=== PATIENT | male | born 1965 | race Caucasian/White ===

== ENCOUNTER 2022-10-02 17:27 | Inpatient (IN) ==
[2022-10-02] MEDS ORDERED: SODIUM CHLORIDE 0.9% 1000ML 1,000 ML IV ONE ×2 (17:53→18:56)
--- NOTE | 2022-10-02 18:00 | Emergency Department Note ---
History of Present Illness General Chief complaint: Lethargic Stated complaint: FATIGUE, ABDOMINAL PAIN, DECREASED APPETITE Time Seen by Provider: 10/02/22 17:37 Source: patient and friends (Friend who is at the bedside) Mode of arrival: ambulatory Limitations: no limitations History of Present Illness This patient is a 57-year-old male who is not felt well for the last for 5 days. He said he lost his appetite. He does not want to eat. He has pain in the right upper abdomen. Is been taking aspirin to help with this he says he is be en taking 3 aspirin about every 3 hours. No Tylenol. He is not had any intentional overdose or thoughts of hurting himself no fever does not feel achy no cough or shortness of breath it does not hurt when he breathes. No fall or trauma no dysuria hematuria normal bowel movements without blood or melena. He feels generally tired no fall. No focal numbness weakness no difficulty speaking or swallowing no change in vision. Minimal headache. No sick contacts. No back pain Home Medications Medication Instructions Recorded Confirmed Type No Known Home Medications 11/12/19 10/02/22 History Allergies Allergy/AdvReac Type Severity Reaction Status Date / Time No Known Allergies Allergy Verified 11/12/19 09:42 Past Med/Surg History Surgical History No history of previous surgery Family History Father Diabetes Heart disease Skin cancer Social History Smoking Status: Never smoker Hx Alcohol Use: Yes Hx Substance Use: No Feels Safe at Home: Yes Immunizations: Past medical history does have diabetes which she controls with supplements no recent blood sugar checks. He says his blood pressures been up and down at times in the past as well. 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 Does not smoke. He does not use drugs or marijuana. He drinks about a handle of alcohol in 5 days. He has not had any alcohol for approximately 5 or 6 days now. He does not feel he is had any shakiness or withdrawal symptoms. Review of Systems A total of 10 systems reviewed and were otherwise negative Physical Exam Vital Signs Vital Signs - 24 hr 10/02/22 17:31 10/02/22 17:46 10/02/22 17:46 Temperature 37.1 C Temperature Source Oral Pulse Rate 128 H Pulse Rate [Apical] 106 H Pulse Rhythm [Apical] Regular Respiratory Rate 18 15 Respiratory Effort / Characteristics Non-Labored Spontaneous Respiratory Depth Normal Blood Pressure 124/87 Blood Pressure [Left Arm] 189/113 H Blood Pressure Mean 99 Blood Pressure Mean [Left Arm] 138 Blood Pressure Position Sitting Pulse Oximetry 98 99 99 Oxygen Delivery Method Room Air Room Air Room Air Sepsis Recent Fever Within 48 Hours No Sepsis New/Unexplained Change in Mental Status N/A Sepsis Action Taken by Nursing No Action Required 10/02/22 19:27 10/02/22 20:00 Temperature Temperature Source Pulse Rate 93 H Pulse Rate [Apical] Pulse Rhythm [Apical] Respiratory Rate 19 14 Respiratory Effort / Characteristics Respiratory Depth Blood Pressure 158/105 H 167/100 H Blood Pressure [Left Arm] Blood Pressure Mean 122 122 Blood Pressure Mean [Left Arm] Blood Pressure Position Pulse Oximetry 100 99 Oxygen Delivery Method Room Air Room Air Sepsis Recent Fever Within 48 Hours Sepsis New/Unexplained Change in Mental Status Sepsis Action Taken by Nursing General: Well developed well nourished not ill-appearing middle-age male who in no acute distress, breathing comfortably on room air. Normal speech HEENT: Normal cephalic atraumatic. Pupils are equal round and reactive to l ight. Extraocular movements are intact. Oropharynx is pink with moist mucous membranes. No swelling of the mouth lips or tongue. Neck: Supple with a midline trachea. No meningeal signs or stiffness, no JVD or bruits. No Stridor. Chest: Clear to auscultation bilaterally. No wheezes or rhonchi. No increased work of breathing. Heart: Regular rate and rhythm without murmurs or gallops. Abdomen: Soft, mildly tender in the right upper abdomen. No rash or external signs of trauma. nondistended without rebound guarding or rigidity. Extremities: No cyanosis clubbing or edema. No calf tenderness or assymetry Spine/Back. Non tender to palpation. No CVA tenderness Skin: Good turgor without rashes. Neurologic exam: Cranial nerves two through 12 are intact. Motor and sensation are intact and symmetrical throughout. No tremor Procedures ABG Interpretation ABG Interpretation 1: ABG Results: pH is 7.41, PCO2 22, PO2 112, bicarb 14, O2 sat 99.9% Interpretation: metabolic acidosis Additional Comments: The patient has normal oxygenation. He does have a metabolic acidosis with respiratory compensation Course Administered Medications Sodium Bicarbonate 150 meq/ (Dextrose) 1,150 mls @ 125 mls/hr IV .Q9H12M [facility] Stop: 10/03/22 05:26 Last Admin: 10/02/22 20:40 Dose: 125 mls/hr Documented By: DP Pantoprazole Sodium 40 mg/ (Syringe) 10 mls @ 5 mls/min IV BID [facility] Stop: 11/01/22 21:14 Last Admin: 10/02/22 22:20 Dose: 5 mls/min Documented By: RDD Insulin Aspart (Insulin Aspart Per Unit) 0 units SC Q6H [facility] Stop: 11/01/22 21:14 Last Admin: 10/02/22 21:45 Dose: Not Given Documented By: DP Co-signed By: QGV Morphine Sulfate (Morphine Sulfate 2 Mg/Ml Carp) 1 mg IV Q4H PRN PRN Reason: Pain (4,5,6 +) Stop: 10/16/22 20:30 Last Admin: 10/02/22 21:32 Dose: 1 mg Documented By: DP Discontinued Medications Sodium Chloride (Nss 1000ml) 1,000 mls @ 999 mls/hr IV .Q1H1M ONE Stop: 10/02/22 18:53 Last Infusion: 10/02/22 19:21 Dose: 0 mls/hr Documented By: Admin: 10/02/22 18:20 Dose: 999 mls/hr Documented By: RDD Sodium Chloride (Nss 1000ml) 1,000 mls @ 999 mls/hr IV .Q1H1M ONE Stop: 10/02/22 19:56 Last Infusion: 10/02/22 20:33 Dose: 0 mls/hr Documented By: Admin: 10/02/22 19:32 Dose: 999 mls/hr Documented By: DP Insulin Aspart (Insulin Aspart Per Unit) 0 units SC ACHS [facility] Stop: 11/01/22 20:59 Last Admin: 10/02/22 21:46 Dose: Not Given Documented By: DP Co-signed By: QGV Sodium Bicarbonate (Sodium Bicarb 8.4% Inj 50 Meq/50 Ml Syr) 50 meq IV ONE STA Stop: 10/02/22 20:32 Last Admin: 10/02/22 20:39 Dose: 50 meq Documented By: DP Tamsulosin HCl (Tamsulosin Hcl 0.4 Mg Cap) 0.4 mg PO ONE STA Stop: 10/02/22 20:43 Last Admin: 10/02/22 21:05 Dose: 0.4 mg Documented By: DP Thiamine HCl (Thiamine Hcl 100 Mg Tab) 100 mg PO ONE STA Stop: 10/02/22 20:45 Last Admin: 10/02/22 21:08 Dose: 100 mg Documented By: DP Critical Care Time Critical Care Time: Yes Total Critical Care Time: 45 I have personally spent greater than 45 minutes of critical care time in the direct management of this patient. This includes bedside care, interpretation of diagnostic studies, and testing, discussion with consultants, patient, and family members, and other required patient management activities. This 45 minutes is in excess of all separately billable procedures. Medical Decision Making Differential Diagnosis Gallbladder disease, liver disease, infection, toxicologic, diabetic related, thyroid disease, cardiac disease, pulmonary disease, electrolyte or metabolic abnormality, trauma Medical Records Attestation: I reviewed the patient's medical records. Home Medications Current Medication List: was personally reviewed by me Laboratory Data Attestation: I reviewed the patient's lab results. Result diagrams: 10/02/22 17:56 10/02/22 17:56 Lab Results 10/02/22 10/02/22 10/02/22 Range/Units 17:56 17:56 17:56 WBC 9.86 (4.8-10.8) K/ul RBC 5.01 (4.63-6.08) M/uL Hgb 17.8 (14.0-18.0) g/dl Hct 48.5 (40.1-51.0) % MCV 96.8 (80.0-100.0) fL MCH 35.5 H (25.0-34.0) pg MCHC 36.7 H (32.0-36.0) g/dL RDW Std Deviation 40.3 (36.4-46.3) fL RDW Coeff of Nasima 11.4 L (11.5-14.5) % Plt Count 227 (130-400) K/uL MPV 10.2 (9.4-12.4) fL Immature Gran % (Auto) 0.4 % Neut % (Auto) 76.2 % Lymph % (Auto) 9.9 % [place] % (Auto) 12.8 % Eos % (Auto) 0.3 % Baso % (Auto) 0.4 % Neut # (Auto) 7.51 H (1.4-6.5) K/uL Lymph # (Auto) 0.98 L (1.2-3.4) K/uL [place] # (Auto) 1.26 H (0.24-0.82) K/uL Eos # (Auto) 0.03 (0-0.50) K/uL Baso # (Auto) 0.04 (0-0.2) K/uL Immature Gran # (Auto) 0.04 H (0.00-0.02) K/uL PT 11.9 (9.0-12.0) Seconds INR 1.1 (0.9-1.1) APTT 25.2 (21.0-31.0) Seconds PTT Ratio 0.9 ABG pH (7.35-7.45) ABG pCO2 (35-46) mmHg ABG pO2 (80-95) mmHg ABG HCO3 (19-24) mmol/L ABG O2 Saturation (90-95) % ABG Base Excess (-9-1.8) mEq/L Irving Test (Pos) Oxygen Given Sodium 134 L (136-145) mmol/L Potassium 3.9 (3.5-5.1) mmol/L Chloride 97 L (98-107) mmol/L Carbon Dioxide 18 L (21-32) mmol/L Anion Gap 19 H (3-11) BUN 38 H (6-23) mg/dl Creatinine 1.50 H (0.6-1.4) mg/dl Est Cr Clr Drug Dosing 62.9 ml/min Est GFR ( Amer) 58.6 ml/min Est GFR (Non-Af Amer) 50.6 ml/min BUN/Creatinine Ratio 25.3 H (10-20) Glucose 305 H* (70-99(Fasting)) mg/dl Lactate (0.4-2.0) mmol/L Calcium 8.9 (8.5-10.1) mg/dl Magnesium 2.1 (1.7-2.4) mg/dl Total Bilirubin 1.3 H (0.2-1.0) mg/dl AST 15 (13-39) U/L ALT 23 (7-52) U/L Alkaline Phosphatase 48 (34-104) U/L Ammonia (18-72) umol/L Troponin I High Sens 9.2 (0-20) pg/ml Total Protein 7.5 (6.0-8.3) gm/dl Albumin 4.1 (3.4-5.0) gm/dl Globulin 3.4 (2.5-4.0) gm/dl Albumin/Globulin Ratio 1.2 (0.9-2) TSH (0.300-4.500) uIu/ml Salicylates (3.0-30) mg/dl Acetaminophen (10-30) ug/ml Ethyl Alcohol mg/dL (<10.0) mg/dl 10/02/22 10/02/22 10/02/22 Range/Units 17:56 17:56 17:56 WBC (4.8-10.8) K/ul RBC (4.63-6.08) M/uL Hgb (14.0-18.0) g/dl Hct (40.1-51.0) % MCV (80.0-100.0) fL MCH (25.0-34.0) pg MCHC (32.0-36.0) g/dL RDW Std Deviation (36.4-46.3) fL RDW Coeff of Nasima (11.5-14.5) % Plt Count (130-400) K/uL MPV (9.4-12.4) fL Immature Gran % (Auto) % Neut % (Auto) % Lymph % (Auto) % [place] % (Auto) % Eos % (Auto) % Baso % (Auto) % Neut # (Auto) (1.4-6.5) K/uL Lymph # (Auto) (1.2-3.4) K/uL [place] # (Auto) (0.24-0.82) K/uL Eos # (Auto) (0-0.50) K/uL Baso # (Auto) (0-0.2) K/uL Immature Gran # (Auto) (0.00-0.02) K/uL PT (9.0-12.0) Seconds INR (0.9-1.1) APTT (21.0-31.0) Seconds PTT Ratio ABG pH (7.35-7.45) ABG pCO2 (35-46) mmHg ABG pO2 (80-95) mmHg ABG HCO3 (19-24) mmol/L ABG O2 Saturation (90-95) % ABG Base Excess (-9-1.8) mEq/L Irving Test (Pos) Oxygen Given Sodium (136-145) mmol/L Potassium (3.5-5.1) mmol/L Chloride (98-107) mmol/L Carbon Dioxide (21-32) mmol/L Anion Gap (3-11) BUN (6-23) mg/dl Creatinine (0.6-1.4) mg/dl Est Cr Clr Drug Dosing ml/min Est GFR ( Amer) ml/min Est GFR (Non-Af Amer) ml/min BUN/Creatinine Ratio (10-20) Glucose (70-99(Fasting)) mg/dl Lactate (0.4-2.0) mmol/L Calcium (8.5-10.1) mg/dl Magnesium (1.7-2.4) mg/dl Total Bilirubin (0.2-1.0) mg/dl AST (13-39) U/L ALT (7-52) U/L Alkaline Phosphatase (34-104) U/L Ammonia (18-72) umol/L Troponin I High Sens (0-20) pg/ml Total Protein (6.0-8.3) gm/dl Albumin (3.4-5.0) gm/dl Globulin (2.5-4.0) gm/dl Albumin/Globulin Ratio (0.9-2) TSH 1.848 (0.300-4.500) uIu/ml Salicylates 34.6 H* (3.0-30) mg/dl Acetaminophen < 3 L (10-30) ug/ml Ethyl Alcohol mg/dL < 10.0 (<10.0) mg/dl 10/02/22 10/02/22 10/02/22 Range/Units 18:21 18:21 19:28 WBC (4.8-10.8) K/ul RBC (4.63-6.08) M/uL Hgb (14.0-18.0) g/dl Hct (40.1-51.0) % MCV (80.0-100.0) fL MCH (25.0-34.0) pg MCHC (32.0-36.0) g/dL RDW Std Deviation (36.4-46.3) fL RDW Coeff of Nasima (11.5-14.5) % Plt Count (130-400) K/uL MPV (9.4-12.4) fL Immature Gran % (Auto) % Neut % (Auto) % Lymph % (Auto) % [place] % (Auto) % Eos % (Auto) % Baso % (Auto) % Neut # (Auto) (1.4-6.5) K/uL Lymph # (Auto) (1.2-3.4) K/uL [place] # (Auto) (0.24-0.82) K/uL Eos # (Auto) (0-0.50) K/uL Baso # (Auto) (0-0.2) K/uL Immature Gran # (Auto) (0.00-0.02) K/uL PT (9.0-12.0) Seconds INR (0.9-1.1) APTT (21.0-31.0) Seconds PTT Ratio ABG pH 7.41 (7.35-7.45) ABG pCO2 22 L (35-46) mmHg ABG pO2 112 H (80-95) mmHg ABG HCO3 14 L (19-24) mmol/L ABG O2 Saturation 99.9 H (90-95) % ABG Base Excess -8.6 (-9-1.8) mEq/L Irving Test Pos (Pos) Oxygen Given Room Air Sodium (136-145) mmol/L Potassium (3.5-5.1) mmol/L Chloride (98-107) mmol/L Carbon Dioxide (21-32) mmol/L Anion Gap (3-11) BUN (6-23) mg/dl Creatinine (0.6-1.4) mg/dl Est Cr Clr Drug Dosing ml/min Est GFR ( Amer) ml/min Est GFR (Non-Af Amer) ml/min BUN/Creatinine Ratio (10-20) Glucose (70-99(Fasting)) mg/dl Lactate 2.5 H* (0.4-2.0) mmol/L Calcium (8.5-10.1) mg/dl Magnesium (1.7-2.4) mg/dl Total Bilirubin (0.2-1.0) mg/dl AST (13-39) U/L ALT (7-52) U/L Alkaline Phosphatase (34-104) U/L Ammonia 41.0 (18-72) umol/L Troponin I High Sens (0-20) pg/ml Total Protein (6.0-8.3) gm/dl Albumin (3.4-5.0) gm/dl Globulin (2.5-4.0) gm/dl Albumin/Globulin Ratio (0.9-2) TSH (0.300-4.500) uIu/ml Salicylates (3.0-30) mg/dl Acetaminophen (10-30) ug/ml Ethyl Alcohol mg/dL (<10.0) mg/dl Imaging Data Attestation: I personally reviewed and interpreted this imaging study as follows: My Impression: Chest x-ray-no acute infiltrate, failure, pneumothorax seen Radiologist's Impression: Chest X-Ray 10/02/22 17:52 XR chest 1V portable CLINICAL HISTORY: weakness TECHNIQUE: Single frontal radiograph of the chest was obtained. Comparison: None available at the time of this dictation. FINDINGS: No lines and tubes are seen. The cardiomediastinal silhouette is normal. The lungs are clear. No evidence of pleural effusion or pneumothorax. IMPRESSION: No acute abnormalities and in particular no evidence of pneumonia. ACT 112: Negative or not required by law. Electronically signed by: Almas Cotto M.D. 10/02/2022 6:16 PM Abdomen/Pelvis CT 10/02/22 18:50 CT abd pelvis wo con CLINICAL HISTORY: rt flank and abd pain TECHNIQUE: Helical axial images of the abdomen and pelvis were obtained. Automa singh dose lowering techniques and/or adjustment according to patient size were utilized for this exam. This exam was performed without intravenous contrast. CT DOSE: 441.67 mGy.cm COMPARISON: None available at the time of this dictation. FINDINGS: Lower chest: No acute abnormality. Liver: Hepatic steatosis is noted. Gallbladder and biliary tree: No calcified gallstones. Normal caliber wall. No intra- or extrahepatic biliary ductal dilation. Pancreas: Unremarkable, no focal lesions. Spleen: Unremarkable. Adrenals: Unremarkable. Kidneys and ureters: There is an obstructive stone in the right proximal ureter measuring approximately 4 mm in diameter. There is associated hydronephrosis/hydroureter. Bladder: Unremarkable. Reproductive organs: Unremarkable. Bowel: Unremarkable. Lymph nodes Retroperitoneal: Unremarkable. Pelvic: Unremarkable. Mesenteric: Unremarkable. Peritoneum: Normal. Vessels: Atherosclerotic calcifications are seen. There is a tiny infrarenal aortic aneurysm measuring 24 mm in diameter. Abdominal wall: Unremarkable. Bones: Degenerative changes in the visualized spine. IMPRESSION: There is an obstructive stone in the proximal right ureter with associated hydronephrosis/hydroureter. ACT 112: Negative or not required by law. Electronically signed by: Almas Cotto M.D. 10/02/2022 7:25 PM ECG Data Attestation: I personally reviewed and interpreted this ECG as follows: Indication: + abdominal pain Rate (beats per minute): 107 Rhythm: + sinus tachycardia ECG Intervals/blocks: + Normal QRS, + Normal QT and + Normal CT ECG [place]: + Normal ECG ST segments: + Nonspecific ST abnormalities ECG Findings: no PACs or no PVCs Comparison ECG Date: from (03/11/98) Change: the following changes noted (Nonspecific ST segments are now present) MDM Narrative This patient comes in as described above he was placed on a monitoring coordinator in room B8. He has multiple complaints over the last several days he has had decreased appetite and it seems like his pain is mostly in the right upper quadrant abdominal pain he has stable vital signs. One of my concerns is he has been taking extra aspirin and this could be related to aspirin toxicity among other things. His initial EKG does not suggest any definite ischemia. IV access was established and he was given 1 L IV normal saline bolus/ multiple blood testing was obtained as well as chest x-ray and EKG and COVID testing he was reassessed frequently. His aspirin level came back elevated and his CO2 was also low at 18. I did add an ABG. His blood sugar is also elevated at over 300. His lactic acid is mildly elevated 2.5 he continue receive IV hydration added a second liter. His ammonia was normal and his LFTs are normal. His renal function is mildly elevated as well. That could be prerenal. I am concerned there is an aspirin toxicity component. There may be an underlying diabetes component and I ordered a noncontrast CT to evaluate for any acute intra-abdominal process. He was found to have a kidney stone on the right. I suspect that he has been using aspirin because he has had pain from the kidney stone and has been using potentially toxic doses of aspirin he also has diabetes which he is not being treated for now which attributes to his electrolyte abnormality. I did discuss the case with Patria at the [facility] and she recommends treating him with a bicarb bolus 0.5 to 1 mg/kg IV and then a bicarb drip to keep the pH between 7.5 and 7.55. She said that this needs to be run until the salicylate level is less than 30. She recommends checking the salicylate level, VBG, and potassium every 2 hours and once the salicylate level goes less than 30 they can turn off the drip and check it 1 more time in 2 hours to make sure there is no rebound. I called and talked to Brenda, the pharmacist, she is ordered the bolus and is also ordering a drip IV. I have discussed the case with Dr. Victoria and she is presently at the bedside and will be admitting the patient for further treatment and evaluation Continuous cardiac monitoring: Orders placed in EMR for continuous cardiac monitoring. Upon my interpretation, the patient noted be in sinus tachycardia with a rate of 100. Impression & Plan Overdose of salicylate, Weakness, Metabolic acidosis, Hyperglycemia, Elevated lactic acid level, Lab test negative for COVID-19 virus, Abdominal pain Discharge Plan Visit Data Chief Complaint: Lethargic Stated Complaint: FATIGUE, ABDOMINAL PAIN, DECREASED APPETITE ED Provider: Darrian Staley Discharge Problem: Overdose of salicylate, Weakness, Metabolic acidosis, Hyperglycemia, Elevated lactic acid level, Lab test negative for COVID-19 virus, Abdominal pain Patient Disposition: Admitted As Inpatient Discharge Instructions Interventions: ED Discharge Assessment Last Done: 10/02/22 22:23 : Overdose of salicylate Qualifiers: Encounter type: initial encounter Injury intent: accidental or unintentional Qualified Code(s): T39.091A - Poisoning by salicylates, accidental (unintentional), initial encounter Abdominal pain Qualifiers: Abdominal location: right upper quadrant Qualified Code(s): R10.11 - Right upper quadrant pain
[2022-10-02 18:07] LABS: Basophils # (auto) 0.04 K/uL (0-0.2); Basophils % (auto) 0.4 %; Eosinophils # (auto) 0.03 K/uL (0-0.50); Eosinophils % (auto) 0.3 %; Hematocrit (blood only) 48.5 % (40.1-51.0); Hemoglobin 17.8 g/dl (14.0-18.0); Immature Granulocytes # (auto) 0.04 K/uL (0.00-0.02); Immature Granulocytes % (auto) 0.4 %; Lymphocytes # (auto) 0.98 K/uL (1.2-3.4); Lymphocytes % (auto) 9.9 %; Mean Corpuscular Hemoglobin 35.5 pg (25.0-34.0); Mean Corpuscular Hgb Conc 36.7 g/dL (32.0-36.0); Mean Corpuscular Volume 96.8 fL (80.0-100.0); Mean Platelet Volume 10.2 fL (9.4-12.4); Monocytes # (auto) 1.26 K/uL (0.24-0.82); Monocytes % (auto) 12.8 %; Neutrophils # (auto) 7.51 K/uL (1.4-6.5); Neutrophils % (auto) 76.2 %; Platelet Count 227 K/uL (130-400); RDW Coefficient of Variation 11.4 % (11.5-14.5); RDW Standard Deviation 40.3 fL (36.4-46.3); Red Blood Count 5.01 M/uL (4.63-6.08); White Blood Count 9.86 K/ul (4.8-10.8)
--- NOTE | 2022-10-02 18:17 | XRay Report ---
XR chest 1V portable CLINICAL HISTORY: weakness TECHNIQUE: Single frontal radiograph of the chest was obtained. Comparison: None available at the time of this dictation. FINDINGS: No lines and tubes are seen. The cardiomediastinal silhouette is normal. The lungs are clear. No evid ence of pleural effusion or pneumothorax. IMPRESSION: No acute abnormalities and in particular no evidence of pneumonia. ACT 112: Negative or not required by law. Electronically signed by: Almas Cotto M.D. 10/02/2022 6:16 PM
[2022-10-02 18:19] LABS: INR 1.1 (0.9-1.1); Partial Thromboplastin Ratio 0.9; Partial Thromboplastin Time 25.2 Seconds (21.0-31.0); Prothrombin Time 11.9 Seconds (9.0-12.0)
[2022-10-02 18:50] LABS: Acetaminophen < 3 ug/ml (10-30); Salicylate 34.6 mg/dl (3.0-30)
[2022-10-02 18:51] LABS: Albumin Globulin Ratio 1.2 (0.9-2); Albumin Level 4.1 gm/dl (3.4-5.0); BUN Creatinine Ratio 25.3 (10-20); Bilirubin,Total 1.3 mg/dl (0.2-1.0); Calcium 8.9 mg/dl (8.5-10.1); Creatinine Clr Calc Pharmacy 62.9 ml/min; Est GFR (African American) 58.6 ml/min; Est GFR (Non-African American) 50.6 ml/min; Globulin 3.4 gm/dl (2.5-4.0); Magnesium 2.1 mg/dl (1.7-2.4); Potassium 3.9 mmol/L (3.5-5.1); Total Protein 7.5 gm/dl (6.0-8.3); Troponin I High Sensitivity 9.2 pg/ml (0-20)
--- NOTE | 2022-10-02 19:27 | CT Scan Report ---
CT abd pelvis wo con CLINICAL HISTORY: rt flank and abd pain TECHNIQUE: Helical axial images of the abdomen and pelvis were obtained. Automated dose lowering tech niques and/or adjustment according to patient size were utilized for this exam. This exam was perfor med without intravenous contrast. CT DOSE: 441.67 mGy.cm COMPARISON: None available at the time of this dictation. FINDINGS: Lower chest: No acute abnormality. Liver: Hepatic steatosis is noted. Gallbladder and biliary tree: No calcified gallstones. Normal caliber wall. No intra- or extrahepatic biliary ductal dilation. Pancreas: Unremarkable, no focal lesions. Spleen: Unremarkable. Adrenals: Unremarkable. Kidneys and ureters: There is an obstructive stone in the right proximal ureter measuring approximate ly 4 mm in diameter. There is associated hydronephrosis/hydroureter. Bladder: Unremarkable. Reproductive organs: Unremarkable. Bowel: Unremarkable. Lymph nodes Retroperitoneal: Unremarkable. Pelvic: Unremarkable. Mesenteric: Unremarkable. Peritoneum: Normal. Vessels: Atherosclerotic calcifications are seen. There is a tiny infrarenal aortic aneurysm measurin g 24 mm in diameter. Abdominal wall: Unremarkable. Bones: Degenerative changes in the visualized spine. IMPRESSION: There is an obstructive stone in the proximal right ureter with associated hydronephrosis/hydroureter . ACT 112: Negative or not required by law. Electronically signed by: Almas Cotto M.D. 10/02/2022 7:25 PM
[2022-10-02 19:36] LABS: Base Excess ABG -8.6 mEq/L (-9-1.8); HCO3 ABG 14 mmol/L (19-24); Oxygen Saturation ABG 99.9 % (90-95); PCO2 ABG 22 mmHg (35-46); PO2 ABG 112 mmHg (80-95); pH ABG 7.41 (7.35-7.45)
[2022-10-02 19:41] LABS: Allen Test Pos (Pos)
--- NOTE | 2022-10-02 19:58 | History & Physical Report ---
Date of Service October 02, 2022 Assessment & Plan (1) Overdose of salicylate: Plan: -Admit to the PCU -Patient is currently afebrile, hemodynamically stable, and stable on RA -Overdose was unintentional, patient was taking high doses of aspirin due to pain from right, 4mm kidney stone noted of CT of the abd/pelvis today -Patient's initial VBG is showing a pCO2 of 22, with pO2 of 12 and bicarb of 14. He also has an elevated AG with bicarb of 18. Patient is presenting with lab findings consistent with salicylate poisoning as it begins with a respiratory alkalosis and transitions into a high AG metabolic acidosis -Will continue sodium bicarb bolus and drip to keep VBG pH between 7.50-7.55 -Monitor q2h VBG, salicylate level, and BMP until the patient's salicylate level falls below 30, then recheck all 3 labs once more in 2 hours to ensure he is not having a rebound effect -Monitor on tele and pulse oximetry -No concerning ECG changes -Patient's initial lactate was elevated at 2.5, repeat is ordered after receiving 2L NSS bolus -Will start the patient on thiamine to avoid any possible Wernicke's encephalopathy since he has not been eating over the past week (2) Nephrolithiasis: Plan: -Patient found to have 4 mm right nephrolithiasis with hydronephrosis/hydroureter -Patient should be able to pass stone without stenting, no signs of systemic infection at this time, will obtain a UA -Patient is urinating well, unsure of baseline cr but continue to trend -Will start the patient on Flomax tonight, tylenol and morphine for pain. Would not use NSAIDs at this time with his current salicylate levels -If any issues would consult Urology (3) Hyperglycemia: Plan: -Initial BSG noted to be 305 -Patient uses diet and exercise to try and control his BSG, is hesitant to try insulin at the time of the admission and asked if we could continue to monitor for now -Patient is S/P 2L NSS bolus -Will monitor BSG q6h for now with correction factor 45 and carb ratio 15 q6h. Communication placed to ask patient if he would want to use insulin before giving -AM A1C ordered (4) Type 2 diabetes mellitus: Plan: -See hyperglycemia (5) Metabolic acidosis: Plan: -See salicylate poisoning Plan The patient was seen with and discussed with Dr. Victoria at the time of the admission History of Present Illness Chief Complaint: Lethargic Primary Care Provider: ROSIE PCP Mike is a 57 year old male with a PMH significant for DM II who presented to the [facility] ED on 10/02/22 with a chief complaint of lethargy. In the ED the patient was found to be afebrile, hypertensive with systolic BP's in the 150's- 180's, and stable on RA. Labs were remarkable WBC WNL, stable Hgb and platelets, VBG showing a pH of 7.41, pCO2 22, pO2 of 112, Bicarb of 14, Cr of 1.5, stable corrected sodium, AG of 19 with vicarb of 18, blood glucose of 305, total bili 1.3, lactate of 2.5, Salicylate level of 34.6. Chest xray shows "No acute abnormalities and in particular no evidence of pneumonia". CT of the abdomen/pelvis WO contrast shows "There is an obstructive stone in the proximal right ureter with associated hydronephrosis/hydroureter.". Prior to admission the patient was given 2L NSS in the ED. At the time of the exam the patient was lying comfortably in bed in no acute distress with his friends sitting bedside, history was obtained from all 3. The patient states that he started to experience right flank/RLQ pain approximately one week ago. The pain is fairly constant, is a 5/10 at it's worst, and does not change with movement or urination. The patient is not on any prescribed medications as he tries to stick to holistic medical treatments. Due to his pain he had poor oral intake and has not been eating or drinking consistently over the past week. Approximately 3 days ago he started taking aspirin for his pain. He was taking 3, 325 mg Tablets of aspirin every 3 hours over the past 72 hours. His last dose of aspirin was approximately 4 pm today. He friends convinced him to come to the hospital today as they stated that he was very weak and was becoming confused and lethargic. His friends state that since arriving to the hospital and receiving IV fluids they already notice a big improvement in his cognition. Of note, his friends feel as though his hearing was worse over the past 48 hours, the patient agrees with them but denies tinnitus at this time. The patient denies recent fevers, chills, headache, changes in vision, hearing, taste, and smell, chest pain, SOB, vomiting, dysuria, hematuria, diarrhea, melena, lower extremity swelling, and recent falls/trauma. I discussed code status with him, he wishes to be a full code. The ED staff spoke with poison control who recommended starting the patient on an initial bolus of sodium bicarb and then a bicarb drip. They recommended checking a VBG, BMP, and salicylate level q2h until his salicylate level falls below 30. At that time the bicarb drip can be turned off and a final VBG, BMP, and salicylate level should be drawn 2 hours after to ensure he does not have a rebound effect after stopping the drip. The poison control center recommended keeping his VBG pH between 7.50-7.55 while on the bicarb drip and until his salicylate level falls below 30. The ED staff coordinated with our ED pharmacist to order the initial bolus and drip rate for the sodium bicarb. Please refer to Dr. Victoria's attestation for any changes to the treatment plan Allergies Allergy/AdvReac Type Severity Reaction Status Date / Time No Known Allergies Allergy Verified 11/12/19 09:42 Home Medications Medication Instructions Recorded Confirmed Type No Known Home Medications 11/12/19 10/02/22 History Past Med/Surg History Surgical History No history of previous surgery Family History Father Diabetes Heart disease Skin cancer Social History Smoking Status: Never smoker Hx Alcohol Use: Yes Hx Substance Use: No Preferred Language: Malay [employer] Required: No Beliefs That Will Affect Care: None Current Living Situation: Alone Feels Safe at Home: Yes Review of Systems Review of Systems: Denies current fever, chills, headache, changes in vision, hearing, taste, and smell, chest pain, SOB, cough, abdominal nausea, vomiting, diarrhea, hematemesis, melena, dysuria, hematuria, and recent falls. All systems have been reviewed and are otherwise negative. Physical Exam Physical Exam: Physical Exam: General: In no acute distress, stated age, well-nourished, good hygiene, non- toxic appearing HEENT: Normocephalic, atraumatic, no scleral icterus, pupils around round, symmetrical, and reactive to light, Dry mucus membranes, trachea midline, no thyromegaly Chest/Pulm: No respiratory distress, symmetrical chest expansion, clear breath sounds throughout Cardiac: RRR, no murmurs noted Abdomen: Negative for ascites and bruising, normoactive bowel sounds, soft, tender to palpation in the RUQ and RLQ, negative CVA tenderness Musculoskeletal: Symmetrical and without signs of acute trauma, upper and lower extremities with full ROM, no atrophy, spasticity, or flaccidity Extremities: Radial, dorsalis pedis, and posterior tibial pulses are intact and symmetrical, no edema noted in the BL LE's Skin: Warm, dry, no rashes , lesions, or scars noted Neuro: Alert and oriented to person, place, month, year, and president, no focal defects, CN II-XII tested and intact, finger to nose test negative, no tremors noted Psych: No acute distress, calm and cooperative during the exam Results & Data Results & Data ([facility]) Vital Signs (Past 12 Hours) Vital Signs Temp Pulse Pulse Resp BP BP Pulse Ox 10/02/22 19:27 93 H 19 158/105 H 100 10/02/22 17:46 106 H 15 189/113 H 99 10/02/22 17:46 99 10/02/22 17:31 37.1 C 128 H 18 124/87 98 O2 Del Method 10/02/22 19:27 Room Air 10/02/22 17:46 Room Air 10/02/22 17:46 Room Air 10/02/22 17:31 Room Air Laboratory Results Abnormal lab results 10/02/22 10/02/22 10/02/22 Range/Units 17:56 17:56 17:56 MCH 35.5 H (25.0-34.0) pg MCHC 36.7 H (32.0-36.0) g/dL RDW Coeff of Nasima 11.4 L (11.5-14.5) % Neut # (Auto) 7.51 H (1.4-6.5) K/uL Lymph # (Auto) 0.98 L (1.2-3.4) K/uL [place] # (Auto) 1.26 H (0.24-0.82) K/uL Immature Gran # (Auto) 0.04 H (0.00-0.02) K/uL ABG pCO2 (35-46) mmHg ABG pO2 (80-95) mmHg ABG HCO3 (19-24) mmol/L ABG O2 Saturation (90-95) % Sodium 134 L (136-145) mmol/L Chloride 97 L (98-107) mmol/L Carbon Dioxide 18 L (21-32) mmol/L Anion Gap 19 H (3-11) BUN 38 H (6-23) mg/dl Creatinine 1.50 H (0.6-1.4) mg/dl BUN/Creatinine Ratio 25.3 H (10-20) Glucose 305 H* (70-99(Fasting)) mg/dl Lactate (0.4-2.0) mmol/L Total Bilirubin 1.3 H (0.2-1.0) mg/dl Salicylates 34.6 H* (3.0-30) mg/dl Acetaminophen < 3 L (10-30) ug/ml 10/02/22 10/02/22 Range/Units 18:21 19:28 MCH (25.0-34.0) pg MCHC (32.0-36.0) g/dL RDW Coeff of Nasima (11.5-14.5) % Neut # (Auto) (1.4-6.5) K/uL Lymph # (Auto) (1.2-3.4) K/uL [place] # (Auto) (0.24-0.82) K/uL Immature Gran # (Auto) (0.00-0.02) K/uL ABG pCO2 22 L (35-46) mmHg ABG pO2 112 H (80-95) mmHg ABG HCO3 14 L (19-24) mmol/L ABG O2 Saturation 99.9 H (90-95) % Sodium (136-145) mmol/L Chloride (98-107) mmol/L Carbon Dioxide (21-32) mmol/L Anion Gap (3-11) BUN (6-23) mg/dl Creatinine (0.6-1.4) mg/dl BUN/Creatinine Ratio (10-20) Glucose (70-99(Fasting)) mg/dl Lactate 2.5 H* (0.4-2.0) mmol/L Total Bilirubin (0.2-1.0) mg/dl Salicylates (3.0-30) mg/dl Acetaminophen (10-30) ug/ml Diagnostic Findings Chest X-Ray 10/02/22 17:52 XR chest 1V portable CLINICAL HISTORY: weakness TECHNIQUE: Single frontal radiograph of the chest was obtained. Comparison: None available at the time of this dictation. FINDINGS: No lines and tubes are seen. The cardiomediastinal silhouette is normal. The lungs are clear. No evidence of pleural effusion or pneumothorax. IMPRESSION: No acute abnormalities and in particular no evidence of pneumonia. ACT 112: Negative or not required by law. Electronically signed by: Almas Cotto M.D. 10/02/2022 6:16 PM Abdomen/Pelvis CT 10/02/22 18:50 CT abd pelvis wo con CLINICAL HISTORY: rt flank and abd pain TECHNIQUE: Helical axial images of the abdomen and pelvis were obtained. Automated dose lowering techniques and/or adjustment according to patient size were utilized for this exam. This exam was performed without intravenous contrast. CT DOSE: 441.67 mGy.cm COMPARISON: None available at the time of this dictation. FINDINGS: Lower chest: No acute abnormality. Liver: Hepatic steatosis is noted. Gallbladder and biliary tree: No calcified gallstones. Normal caliber wall. No intra- or extrahepatic biliary ductal dilation. Pancreas: Unremarkable, no focal lesions. Spleen: Unremarkable. Adrenals: Unremarkable. Kidneys and ureters: There is an obstructive stone in the right proximal ureter measuring approximately 4 mm in diameter. There is associated hydronephrosis/hydroureter. Bladder: Unremarkable. Reproductive organs: Unremarkable. Bowel: Unremarkable. Lymph nodes Retroperitoneal: Unremarkable. Pelvic: Unremarkable. Mesenteric: Unremarkable. Peritoneum: Normal. Vessels: Atherosclerotic calcifications are seen. There is a tiny infrarenal aortic aneurysm measuring 24 mm in diameter. Abdominal wall: Unremarkable. Bones: Degenerative changes in the visualized spine. IMPRESSION: There is an obstructive stone in the proximal right ureter with associated hydronephrosis/hydroureter. ACT 112: Negative or not required by law. Electronically signed by: Almas Cotto M.D. 10/02/2022 7:25 PM ECG Additional Comments: Sinus tachycardia Possible Left atrial enlargement Borderline ECG When compared with ECG of 11-MAR-1998 15:40, Vent. rate has increased BY [address] no longer elevated in Lateral leads Code Status & VTE Plan Code Status Full code VTE Prophylaxis Plan VTE Prophylaxis will be ordered: Yes Supervising Physician Co-Signing Physician Notes Patient seen and examined, chart reviewed, case discussed with LEANNA Parry and I agree with the assessment and plan as above. In brief, patient is a 57yo male with history of DM presenting with unintentional ASA toxicity - he had been taking 325mg x 3 tabs every 3 hours for the last several days. He has some confusion as well as acid/base disturbance as above. Additionally, he has a right renal stone and hyperglycemia On exam he is afebrile, tachycardic otherwise HD stable MMM, Neck supple +S1/S2, regular, no m/r/g Lungs CTA Abd soft, NT/ND Ext - warm, well perfused Labs and images reviewed Assessment/plan -NaHCO3 bolus and drip - will trend ASA/VBG and BMP q 2 hours until ASA level is <30 -Flomax and IVF, monitor for stone passage -Remainder as above PG Care Time/CCT Total # of Minutes Spent Total Time Spent with Patient: Total time spent is greater than 50% in coordination of care (as documented) at patient's floor/unit and/or counseling patient: [place] [address] Initial Inpt Care Lvl 3 Patient Type Established Medical Decision Making High Complexity Diagnoses Overdose of salicylate T39.091A Encounter type: initial encounter Injury intent: accidental or unintentional Nephrolithiasis N20.0 Hyperglycemia R73.9 Type 2 diabetes mellitus E11.9 Metabolic acidosis E87.20 (1) Overdose of salicylate Encounter type: initial encounter Injury intent: accidental or unintentional Qualified Code(s): T39.091A - Poisoning by salicylates, accidental (unintentiona l), initial encounter
[2022-10-02] MEDS ORDERED: SODIUM BICARBONATE 8.4% INJ 50 MEQ/50 ML VIAL IV STA (20:06)
[2022-10-02] MEDS ORDERED: SODIUM BICARBONATE 8.4% 150 MEQ in DEXTROSE 5% 1,000 ML IV SCH (20:15)
[2022-10-02] MEDS ORDERED: GLUCOSE 40% GEL 15 GM TUBE PO PRN (20:25)
[2022-10-02] MEDS ORDERED: DEXTROSE 50% 50 ML SYRINGE IV PRN (20:25)
[2022-10-02] MEDS ORDERED: GLUCOSE 10 TAB/TUBE PO PRN (20:25)
[2022-10-02] MEDS ORDERED: GLUCAGON FOR INJ 1 MG VIAL SQ PRN (20:25)
[2022-10-02] MEDS ORDERED: CARBOHYDRATES FOR HYPOGLYCEMIA PO PRN (20:25)
[2022-10-02] MEDS ORDERED: ACETAMINOPHEN 325 MG TAB PO PRN (20:28)
[2022-10-02] MEDS ORDERED: SODIUM BICARB 8.4% INJ 50 MEQ/50 ML SYR IV STA (20:31)
[2022-10-02] MEDS ORDERED: TAMSULOSIN HCL 0.4 MG CAP PO STA (20:42)
[2022-10-02] MEDS ORDERED: THIAMINE HCL 100 MG TAB PO STA (20:44)
[2022-10-02] MEDS ORDERED: THIAMINE HCL 100 MG TAB PO SCH (20:45)
[2022-10-02] MEDS ORDERED: INSULIN ASPART PER UNIT SC SCH (21:00)
[2022-10-02] MEDS: MoRPHine SULFATE 2 MG/ML CARP IV PRN (21:32)
[2022-10-02] MEDS: INSULIN ASPART PER UNIT SC SCH (21:45)
[2022-10-02 22:06] LABS: Amphetamines+Metham, Urine Neg (Neg); Barbiturates, Urine Neg (Neg); Benzodiazepine, Urine Neg (Neg); Cocaine, Urine Neg (Neg); MDMA (Ecstacy), Urine Neg (Neg); Methadone, Urine Neg (Neg); Opiate, Urine Neg (Neg); Phencyclidine, Urine Neg (Neg)
[2022-10-02 22:12] LABS: Appearance Urine Clear (Clear); Bilirubin Urine Negative (Negative); Blood Urine Negative (Negative); Color Urine Yellow; Glucose Urine UA 3+ (Negative); Ketones Urine 4+ (Negative); Leukocyte Esterase Urine Negative (Negative); Nitrite Urine Negative (Negative); Protein Urine Negative (Negative); Specific Gravity Urine 1.028 (1.000-1.030); Urobilinogen Urine Negative (Negative)
[2022-10-02] MEDS: PANTOprazole 40 MG in SYRINGE 0 ML IV SCH (22:20)
[2022-10-02 22:35] LABS: Base Excess VBG -2.9 mEq/L; HCO3 VBG 22 mmol/L; Oxygen Saturation VBG < 60.0 %; PCO2 VBG 38 mmHg (38-50); PO2 VBG 24 mmHg; pH VBG 7.37 (7.36-7.41)
[2022-10-03 01:02] LABS: Base Excess VBG -2.3 mEq/L; HCO3 VBG 21 mmol/L; Oxygen Saturation VBG < 60.0 %; PCO2 VBG 33 mmHg (38-50); PO2 VBG 34 mmHg; pH VBG 7.42 (7.36-7.41)
[2022-10-03 01:37] LABS: BUN Creatinine Ratio 25.2 (10-20); Calcium 7.8 mg/dl (8.5-10.1); Creatinine Clr Calc Pharmacy 69.9 ml/min; Est GFR (African American) 66.6 ml/min; Est GFR (Non-African American) 57.5 ml/min; Potassium 3.8 mmol/L (3.5-5.1)
[2022-10-03 02:44] LABS: Base Excess VBG -3.3 mEq/L; HCO3 VBG 20 mmol/L; Oxygen Saturation VBG 81.4 %; PCO2 VBG 30 mmHg (38-50); PO2 VBG 47 mmHg; pH VBG 7.43 (7.36-7.41)
[2022-10-03] MEDS: MoRPHine SULFATE 2 MG/ML CARP IV PRN ×4 (03:13→21:20)
[2022-10-03] MEDS: INSULIN ASPART PER UNIT SC SCH ×4 (03:25→20:44)
[2022-10-03 03:26] LABS: BUN Creatinine Ratio 26.4 (10-20); Calcium 8.3 mg/dl (8.5-10.1); Creatinine Clr Calc Pharmacy 75.5 ml/min; Est GFR (African American) 73.1 ml/min; Est GFR (Non-African American) 63.1 ml/min; Potassium 3.6 mmol/L (3.5-5.1)
[2022-10-03 04:59] LABS: Base Excess VBG -2.7 mEq/L; HCO3 VBG 20 mmol/L; Oxygen Saturation VBG 83.8 %; PCO2 VBG 30 mmHg (38-50); PO2 VBG 49 mmHg; pH VBG 7.44 (7.36-7.41)
[2022-10-03 05:02] LABS: Hematocrit (blood only) 42.2 % (40.1-51.0); Hemoglobin 15.6 g/dl (14.0-18.0); Mean Corpuscular Hemoglobin 35.5 pg (25.0-34.0); Mean Corpuscular Volume 96.1 fL (80.0-100.0); Mean Platelet Volume 10.5 fL (9.4-12.4); Platelet Count 198 K/uL (130-400); RDW Coefficient of Variation 11.1 % (11.5-14.5); RDW Standard Deviation 39.4 fL (36.4-46.3); Red Blood Count 4.39 M/uL (4.63-6.08); White Blood Count 8.23 K/ul (4.8-10.8)
[2022-10-03] MEDS ORDERED: HYDROmorphone INJ 0.5 MG/0.5 ML SYR IV STA ×2 (05:16→23:30)
[2022-10-03 05:38] LABS: BUN Creatinine Ratio 27.2 (10-20); Calcium 8.1 mg/dl (8.5-10.1); Creatinine Clr Calc Pharmacy 82.8 ml/min; Est GFR (African American) 81.7 ml/min; Est GFR (Non-African American) 70.5 ml/min; Potassium 3.6 mmol/L (3.5-5.1)
--- NOTE | 2022-10-03 06:23 | Electrocardiogram Report ---
Test Reason : Blood Pressure : / mmHG Vent. Rate : 107 BPM Atrial Rate : 107 BPM P-R Int : 140 ms QRS Dur : 074 ms QT Int : 324 ms P-R-T Axes : 050 016 057 degrees QTc Int : 432 ms Sinus tachycardia Possible Left atrial enlargement Borderline ECG When compared with ECG of 11-MAR-1998 15:40, Vent. rate has increased BY [address] no longer elevated in Lateral leads Confirmed by Isaiah Hobbs ([id number]) on 10/03/2022 6:23:05 AM Referred By: REFERRED SELF Confirmed By:Isaiah Hobbs
[2022-10-03 07:07] LABS: Base Excess VBG -4.9 mEq/L; HCO3 VBG 18 mmol/L; Oxygen Saturation VBG 99.2 %; PCO2 VBG 27 mmHg (38-50); PO2 VBG 94 mmHg; pH VBG 7.43 (7.36-7.41)
[2022-10-03 07:10] LABS: Estimated Average Glucose 237 mg/dl; Hemoglobin A1C 9.9 % (4.5-5.6)
[2022-10-03 07:29] LABS: Calcium 8.2 mg/dl (8.5-10.1); Est GFR (African American) 78.4 ml/min; Est GFR (Non-African American) 67.6 ml/min; Potassium 3.8 mmol/L (3.5-5.1)
--- NOTE | 2022-10-03 07:37 | Hospitalist Progress Note ---
Date of Service October 03, 2022 Assessment & Plan (1) Overdose of salicylate: Plan: 57yo male presents after an unintentional dose of aspirin, then found with an obstructing right nephrolithiasis with hydronephrosis. Obstructing right nephrolithiasis with hydronephrosis Imaging revealed a 4mm right nephrolithiasis withhydronephrosis/hydroureter Patient should be able to pass stone without stenting, no signs of systemic infection at this time, will obtain a UA Patient is urinating well, unsure of baseline creatinine but continue to trend Will start the patient on Flomax tonight, tylenol and morphine for pain.Would not use NSAIDs at this time with his current salicylate levels NSS @ 100mL/hr Consider consulting urology if issues arise Unintentional salicylate overdose Patient afebrile, hemodynamically stable, and stable on RA Overdose was unintentional, patient was taking high doses of aspirin due to pain from right, 4mm kidney stone noted on CT a/p on admission Patient's initial VBG is showing a pCO2 of 22, with pO2 of 12 and bicarb of 14; labs consistent with salicylate poisoning as it begins with a respiratory alkalosis and transitions into a high AG metabolic acidosis Patient is s/p sodium bicarb bolus and drip; was discontinued once salicylate level fell below 30, as per poison control recommendations Monitor q2h VBG, salicylate level, and BMP until the patient's salicylate level falls below 30, then recheck all 3 labs once more in 2 hours to ensure he is not having a rebound effect Salicylate level fell below 30 in AM on 10/03; two-hour recheck fell further to 22; can discontinue q2h labs Monitor on tele and pulse oximetry No concerning ECG changes Patient's initial lactate was elevated at 2.5, repeat is ordered after receiving 2L NSS bolus Will start the patient on thiamine to avoid any possible Wernicke's encephalopathy since he has not been eating over the past week DM2, hyperglycemia HbA1c 9.9% (10/03/2022), no prior value on record Patient is not on any home meds for DM2, tried controlling with diet/exercise, however given very high HbA1c, will discuss starting DM2 meds Continue BSG checks, sliding-scale insulin, hypoglycemic protocol FEN: DM2 diet Code status: full code DVT ppx: SCDs Dispo: PCU (2) Nephrolithiasis: (3) Type 2 diabetes mellitus: Admission and Anticipated Discharge Date Admission Date: October 02, 2022 Supervising Physician Co-Signing Physician Notes I personally examined the patient and verified all gonzalez points of history and exam, discussed case, and agree with decision making with Dr Mujica. Still has right flank pain, does not think it is really migrated much. Still feels like pain is fairly bad. Extensive discussions on diabetes, as well as alcohol abusehis notes that he drinks quite a bit of bourbon a day. He notes that in terms of his lifestyle change he would like to try to quit that too. Vitals noted, in general he is awake and alert pleasant no distress. HEENT normocephalic atraumatic mucous membranes moist. Breathing unlabored no accessory muscle use good effort. Skin shows no rashes no pallor or icterus. Neuro without focal deficits. Ureterolithiasiscontinue pain control and expectant management. If it does not pass the next day or so, then consider urology evaluation. Salicylate toxicityaccidental overdose trying to manage kidney stone pain at home. This appears to essentially have resolvedmetabolic acidosis has improved nicely. Uncontrolled type 2 [id number] approximately 10%extensive discussion on why to care, as well as the critical role of lifestyle in control of type 2 diabetes. He is extremely keen on lifestyle change as his main means of management. We discussed this really being more diet and exercise changes than anything to do with supplements. Discussed frankly that if he wanted to take pills I would prefer he takes pharmaceuticals that have a more proven benefit, and if he would prefer to do things "holistically" that it would be better to truly do the lifestyle change that has a meaningful impact. He is extremely motivated to do so. Discussed postprandial glucose monitoring, discussed Mediterranean diet, discussed goal of 30 minutes of daily exercise. Made him aware that while lifestyle change can be definitive for type 2 diabetes, right now people are encouraging him to take medications because this often takes time, and in the meantime he is likely creating microvascular ischemia, even as we speak. Leg fatigue with exertionhe has good palpable DP pulses as well as good cap refill, so while he might have some degree of claudication, I am more suspicious that his supposition of just muscle atrophy might be correct. Either way, he certainly does not have any clear need for intervention, and his physical exam is reassuringgraded exercise should help either/both problems Alcohol abusesupplement thiamine and folate. Fortunately his INR and bilirubin are very reassuring, as is his total protein level. Discussed long-term risks of alcohol abuse. He is interested in quitting. Will need PCP at follow-upshe would much prefer somebody who focuses lifestyle first. He is willing to follow-up with one of our resident physicians, particularly if they take that type of approach. Subjective Patient seen and evaluated at bedside this morning. Patient feels well this morning, complaining only of mild right flank pain. Patient denies CP, SOB, nausea, vomiting, lightheadedness, dizziness, and diarrhea. Review of Systems Review of Systems: See HPI Physical Exam Physical Exam: Constitutional: well-appearing, no acute distress CV: regular rhythm, no murmur appreciated, extremities well-perfused, no LE edema Resp: CTABL, no wheezes/rales/rhonchi appreciated, no increased work of breathing GI: soft, nondistended, minimal discomfort to palpation of lower quadrants,, BS normoactive MSK: mild right flank tenderness Skin: warm, dry, no rash appreciated Neuro: alert, oriented, no focal neurologic deficit appreciated Results & Data Results & Data ([facility]) Vital Signs (Past 12 Hours) Vital Signs Temp Pulse Pulse Resp BP BP Pulse Ox 10/03/22 03:20 36.7 C 91 H 20 156/96 H 98 10/03/22 00:28 105 H 10/02/22 22:44 10/02/22 22:44 36.9 C 113 H 20 170/98 H 98 10/02/22 22:00 98 H 18 158/97 H 98 10/02/22 21:00 84 20 174/109 H 94 10/02/22 20:00 14 167/100 H 99 O2 Del Method 10/03/22 03:20 Room Air 10/03/22 00:28 10/02/22 22:44 Room Air 10/02/22 22:44 Room Air 10/02/22 22:00 Room Air 10/02/22 21:00 Room Air 10/02/22 20:00 Room Air Resident Activity Tracking Resident Involvement: Resident Care Provided Care Provided: Adult Hospital Medicine (1) Overdose of salicylate Encounter type: initial encounter Injury intent: accidental or unintentional Qualified Code(s): T39.091A - Poisoning by salicylates, accidental (unin tentional), initial encounter
[2022-10-03] MEDS: THIAMINE HCL 100 MG TAB PO SCH (07:48)
[2022-10-03] MEDS: PANTOprazole 40 MG in SYRINGE 0 ML IV SCH ×2 (07:48→21:33)
[2022-10-03] MEDS ORDERED: hydrALAZINE HCL 20 MG/ML VIAL IV ONE (08:55)
[2022-10-03 09:41] LABS: Base Excess VBG -4.4 mEq/L; HCO3 VBG 19 mmol/L; Oxygen Saturation VBG 94.1 %; PCO2 VBG 29 mmHg (38-50); PO2 VBG 65 mmHg; pH VBG 7.42 (7.36-7.41)
[2022-10-03 10:13] LABS: BUN Creatinine Ratio 23.7 (10-20); Calcium 8.5 mg/dl (8.5-10.1); Creatinine Clr Calc Pharmacy 67.9 ml/min; Est GFR (African American) 64.3 ml/min; Est GFR (Non-African American) 55.5 ml/min; Potassium 3.8 mmol/L (3.5-5.1)
[2022-10-03] MEDS ORDERED: MELATONIN 3 MG TAB PO PRN (11:24)
[2022-10-03] MEDS: ACETAMINOPHEN 500 MG TAB PO SCH ×2 (12:29→19:21)
[2022-10-03] MEDS: SODIUM CHLORIDE 0.9% 1000ML 1,000 ML IV SCH ×2 (12:29→22:24)
--- NOTE | 2022-10-03 20:51 | Billing Data ---
Date of Service October 03, 2022 Coding Level of Care Code 07440 Subseq Hosp Care Lvl 3
--- NOTE | 2022-10-03 20:52 | Billing Data ---
Date of Service October 03, 2022 Coding Level of Care Code 08577 Subseq Hosp Care Lvl 3
[2022-10-03] MEDS ORDERED: TAMSULOSIN HCL 0.4 MG CAP PO SCH (21:00)
[2022-10-03] MEDS ORDERED: Nursing to Pharmacy Communication SCH (21:45)
[2022-10-04] MEDS: ACETAMINOPHEN 500 MG TAB PO SCH ×2 (03:48→12:47)
[2022-10-04 06:37] LABS: Hematocrit (blood only) 39.7 % (40.1-51.0); Hemoglobin 14.4 g/dl (14.0-18.0); Mean Corpuscular Hgb Conc 36.3 g/dL (32.0-36.0); Mean Corpuscular Volume 96.4 fL (80.0-100.0); Mean Platelet Volume 10.5 fL (9.4-12.4); Platelet Count 204 K/uL (130-400); Red Blood Count 4.12 M/uL (4.63-6.08); White Blood Count 8.26 K/ul (4.8-10.8)
[2022-10-04 06:57] LABS: BUN Creatinine Ratio 20.8 (10-20); Creatinine Clr Calc Pharmacy 75.5 ml/min; Est GFR (African American) 73.1 ml/min; Est GFR (Non-African American) 63.1 ml/min; Potassium 3.8 mmol/L (3.5-5.1)
--- NOTE | 2022-10-04 08:13 | Hospitalist Progress Note ---
Date of Service October 04, 2022 Assessment & Plan (1) Overdose of salicylate: Plan: 57yo male presents after an unintentional dose of aspirin, then found with an obstructing right nephrolithiasis with hydronephrosis. Obstructing right nephrolithiasis with hydronephrosis Imaging revealed a 4mm right nephrolithiasis withhydronephrosis/hydroureter Patient should be able to pass stone without stenting, no signs of systemic infection at this time, will obtain a UA Patient is urinating well, unsure of baseline creatinine but continue to trend Will start the patient on Flomax tonight, tylenol and morphine for pain.Would not use NSAIDs at this time with his current salicylate levels NSS @ 100mL/hr Consider consulting urology if issues arise Unintentional salicylate overdose Patient afebrile, hemodynamically stable, and stable on RA Overdose was unintentional, patient was taking high doses of aspirin due to pain from right, 4mm kidney stone noted on CT a/p on admission Patient's initial VBG is showing a pCO2 of 22, with pO2 of 12 and bicarb of 14; labs consistent with salicylate poisoning as it begins with a respiratory alkalosis and transitions into a high AG metabolic acidosis Patient is s/p sodium bicarb bolus and drip; was discontinued once salicylate level fell below 30, as per poison control recommendations Monitor q2h VBG, salicylate level, and BMP until the patient's salicylate level falls below 30, then recheck all 3 labs once more in 2 hours to ensure he is not having a rebound effect Salicylate level fell below 30 in AM on 10/03; two-hour recheck fell further to 22; can discontinue q2h labs Monitor on tele and pulse oximetry No concerning ECG changes Patient's initial lactate was elevated at 2.5, repeat is ordered after receiving 2L NSS bolus Will start the patient on thiamine to avoid any possible Wernicke's encephalopathy since he has not been eating over the past week DM2, hyperglycemia HbA1c 9.9% (10/03/2022), no prior value on record Patient is not on any home meds for DM2, tried controlling with diet/exercise, however given very high HbA1c, will discuss starting DM2 meds Continue BSG checks, sliding-scale insulin, hypoglycemic protocol FEN: DM2 diet Code status: full code DVT ppx: SCDs Dispo: PCU (2) Nephrolithiasis: (3) Type 2 diabetes mellitus: Admission and Anticipated Discharge Date Admission Date: October 02, 2022 Results & Data Results & Data ([facility]) Vital Signs (Past 12 Hours) Vital Signs Temp Pulse Pulse Resp BP Pulse Ox O2 Del Method 10/04/22 03:26 36.5 C 82 16 158/89 H 97 Room Air 10/04/22 00:00 78 10/03/22 22:45 36.6 C 79 17 165/92 H 99 Room Air (1) Overdose of salicylate Encounter type: initial encounter Injury intent: accidental or unintentional Qualified Code(s): T39.091A - Poisoning by salicylates, accidental (unintentional), initial encounter
[2022-10-04] MEDS: SODIUM CHLORIDE 0.9% 1000ML 1,000 ML IV SCH (08:44)
[2022-10-04] MEDS: PANTOprazole 40 MG in SYRINGE 0 ML IV SCH (08:53)
[2022-10-04] MEDS: THIAMINE HCL 100 MG TAB PO SCH (08:53)
[2022-10-04] MEDS: INSULIN ASPART PER UNIT SC SCH ×2 (08:53→13:31)
[2022-10-04] MEDS ORDERED: FOLIC ACID 1 MG TAB PO SCH (09:00)
--- NOTE | 2022-10-04 12:25 | Discharge Summary ---
Date of Service October 04, 2022 Admission HPI Per Admitting Provider Mike is a 57 year old male with a PMH significant for DM II who presented to the [facility] ED on 10/02/22 with a chief complaint of lethargy. In the ED the patient was found to be afebrile, hypertensive with systolic BP's in the 150's- 180's, and stable on RA. Labs were remarkable WBC WNL, stable Hgb and platelets, VBG showing a pH of 7.41, pCO2 22, pO2 of 112, Bicarb of 14, Cr of 1.5, stable corrected sodium, AG of 19 with vicarb of 18, blood glucose of 305, total bili 1.3, lactate of 2.5, Salicylate level of 34.6. Chest xray shows "No acute abnormalities and in particular no evidence of pneumonia". CT of the a bdomen/pelvis WO contrast shows "There is an obstructive stone in the proximal right ureter with associated hydronephrosis/hydroureter.". Prior to admission the patient was given 2L NSS in the ED. At the time of the exam the patient was lying comfortably in bed in no acute distress with his friends sitting bedside, history was obtained from all 3. The patient states that he started to experience right flank/RLQ pain approximately one week ago. The pain is fairly constant, is a 5/10 at it's worst, and does not change with movement or urination. The patient is not on any prescribed medications as he tries to stick to holistic medical treatments. Due to his pain he had poor oral intake and has not been eating or drinking consistently over the past week. Approximately 3 days ago he started taking aspirin for his pain. He was taking 3, 325 mg Tablets of aspirin every 3 hours over the past 72 hours. His last dose of aspirin was approximately 4 pm today. He friends convinced him to come to the hospital today as they stated that he was very weak and was becoming confused and lethargic. His friends state that since arriving to the hospital and receiving IV fluids they already notice a big improvement in his cognition. Of note, his friends feel as though his hearing was worse over the past 48 hours, the patient agrees with them but denies tinnitus at this time. The patient denies recent fevers, chills, headache, changes in vision, hearing, taste, and smell, chest pain, SOB, vomiting, dysuria, hematuria, diarrhea, melena, lower extremity swelling, and recent falls/trauma. I discussed code status with him, he wishes to be a full code. The ED staff spoke with poison control who recommended starting the patient on an initial bolus of sodium bicarb and then a bicarb drip. They recommended checking a VBG, BMP, and salicylate level q2h until his salicylate level falls below 30. At that time the bicarb drip can be turned off and a final VBG, BMP, and salicylate level should be drawn 2 hours after to ensure he does not have a rebound effect after stopping the drip. The poison control center recommended keeping his VBG pH between 7.50-7.55 while on the bicarb drip and until his salicylate level falls below 30. The ED staff coordinated with our ED pharmacist to order the initial bolus and drip rate for the sodium bicarb. Please refer to Dr. Victoria's attestation for any changes to the treatment plan Admission Exam Per Admitting Provider General:In no acute distress, stated age, well-nourished, good hygiene, non- toxic appearing HEENT:Normocephalic, atraumatic, no scleral icterus, pupils around round, symmetrical, and reactive to light,Drymucus membranes, trachea midline, no thyromegaly Chest/Pulm:No respiratory distress, symmetrical chest expansion, clear breath sounds throughout Cardiac:RRR, no murmurs noted Abdomen:Negative for ascites and bruising, normoactive bowel sounds, soft, tender to palpation in the RUQ and RLQ, negative CVA tenderness Musculoskeletal:Symmetrical and without signs of acute trauma, upper and lower extremities with full ROM, no atrophy, spasticity, or flaccidity Extremities:Radial, dorsalis pedis, and posterior tibial pulses are intact and symmetrical, no edema noted in the BL LE's Skin:Warm, dry, no rashes , lesions, or scars noted Neuro:Alert and oriented to person, place, month, year, and president, no focal defects, CN II-XII tested and intact, finger to nose test negative, no tremors noted Psych:No acute distress, calm and cooperative during the exam Principal Diagnosis Salicylate toxicity, obstructing nephrolithiasis with hydronephrosis, hyperglycemia, DM2 Discharge Exam Constitutional: well-appearing, no acute distress CV: regular rhythm, no murmur appreciated, extremities well-perfused, no LE edema Resp: CTABL, no wheezes/rales/rhonchi appreciated, no increased work of breathing GI: soft, nondistended, minimal discomfort to palpation of lower quadrants,, BS normoactive MSK: mild right flank tenderness Skin: warm, dry, no rash appreciated Neuro: alert, oriented, no focal neurologic deficit appreciated Discharge Data Allergies Allergy/AdvReac Type Severity Reaction Status Date / Time No Known Allergies Allergy Verified 11/12/19 09:42 Ordered Studies 10/02/22 18:50 CT stones [CT abd pelvis wo con] Stat Diabetes Follow up Diabetes Follow-up Needed for HgbA1c >9% Hospital Course (1) Overdose of salicylate: Salicylate toxicity Upon arrival to the ED, patient was hemodynamically stable and afebrile. Patient was admitted to the PCU for unintentional aspirin overdose with respiratory alkalosis that transitioned to a high AG metabolic acidosis. Poison control assisted in managing patients sodium bicarb bolus and drip as we monitored patients VBG and BMP. Salicylate level fell to the goal range (under 30) on hospital day two, and patients encephalopathy resolved. No further lab monitoring is indicated. Hyperglycemia, DM2 On admission, BSG was noted to be elevated at 305. Patient does have a history of DM2 but has been resistant to medical therapy, instead trying to achieve BSG control through exercise and dietary modification. HbA1c (10/03/2022) was elevated to 9.9%. During this admission, patient accepted insulin at times and refused it at other times. Patient would greatly benefit from further diabetes education. Nephrolithiasis Imaging on admission was notable for a 4mm obstructing right nephrolithiasis with hydronephrosis; patient did report right flank pain. Patient was treated with fluids, flomax, and pain control. On hospital day three, patients right flank pain resolved entirely, suspected due to passing the stone. PCP follow-up was recommended. (2) Nephrolithiasis: (3) Type 2 diabetes mellitus: Total Time Total Time Spent Total Time Spent (In Minutes): see attending documentation Discharge Plan Discharge Items Patient Disposition: Home - Self-Care Reason For Visit: LETHERAGY Discharge Diagnosis: Unintentional aspirin overdose, salicylate toxicity, nephrolithiasis, hyperglycemia Activity: Resume your previous activity Non-emergency contact: Primary Care Provider Call non-emergency contact if: you have any medication questions and your symptoms worsen Follow-up/Referrals: PCP,NO [Primary Care Provider] - Diet: Carb Consistent or DM2 Addtl Attending Provider Instructions: You were admitted to the hospital for salicylate (aspirin) toxicity as well as high blood sugar and a kidney stone. You were treated with supportive care while your body removed the excess aspirin from your system. We also treated your high blood sugar with insulin, and the kidney stone with IV fluids and pain control. You have recovered nicely from the salicylate toxicity, and given the improvement in your back pain, it is likely that you passed the kidney stone on your own. We feel it is safe for you to return home. It is very important that you establish care with a primary care physician to manage your diabetes. A discharge summary will be sent to your primary care physician to ensure continuity of care. Please bring this discharge summary with you to your next office appointment so that your provider can review it at that time. Follow-up appointments: You have an appointment with Dr. Nikolas Medina on 10/11/2022 at 2:45pm. If you are unable to make this appointment, or have any other questions, their office can be reached at [phone]. Medications: Call your primary care provider before taking any new medicines (including [id number] medicines, vitamins, and supplements), because some of these may interact with your medical conditions or may make your symptoms worse. Tell your primary care provider if you cannot afford your medications. CONTACT YOUR PRIMARY CARE PROVIDER if you experience any of the following: Fever, abdominal pain, back pain, or difficulty urinating Difficulty following your treatment plan, or difficulty taking medications CALL 911 OR GO TO THE EMERGENCY DEPARTMENT if you experience any of the following: Sudden, severe abdominal pain or nausea/vomiting Severe chest pain, or chest pain that radiates (moves) to your jaw or arm Sudden, severe shortness of breath or difficulty breathing Thank you for allowing us to participate in your care. Pending Studies at Discharge: No Stand-Alone Forms: [facility] Medications and DC Order Prescriptions: No Action No Known Home Medications Discharge Orders: Discharge Order (Routine); Ordered 10/04/22 Ordered By: Michael Natarajan/Other Patient Handouts: High Blood Sugar (Hyperglycemia), Managing Type 2 Diabetes Admission Data Admit Date/Time: 10/02/22 20:23 Attending Provider: Migel Hunter Admit Provider: Dorcas Victoria Primary Care Provider: PCP,NO Other Providers: Dorcas Victoria Other Interventions: Discharge Summary Assessment (RN) Last Done: 10/04/22 13:15 Supervising Physician Co-Signing Physician Notes I personally examined the patient and verified all gonzalez points of history and exam, discussed case, and agree with decision making with Dr Mujica. Flank pain has essentially resolved. Feels up to going home. Reiterated lifestyle discussions from yesterday. Vitals noted, in general he is awake and alert pleasant no distress. HEENT normocephalic atraumatic mucous membranes moist. Breathing unlabored no accessory muscle use good effort. Skin shows no rashes no pallor or icterus. Neuro without focal deficits. Ureterolithiasissymptomatically resolved. With no "red flags" or warning signssafe/stable for home with return if symptoms return. Salicylate toxicityaccidental overdose trying to manage kidney stone pain at home. Resolved Uncontrolled type 2 [id number] approximately 10%extensive discussion on why to care, as well as the critical role of lifestyle in control of type 2 diabetes. He is extremely keen on lifestyle change as his main means of management. We discussed this really being more diet and exercise changes than anything to do with supplements. Discussed frankly that if he wanted to take pills I would prefer he takes pharmaceuticals that have a more proven benefit, and if he would prefer to do things "holistically" that it would be better to truly do the lifestyle change that has a meaningful impact. He is extremely motivated to do so. Discussed postprandial glucose monitoring, discussed Mediterranean diet, discussed goal of 30 minutes of daily exercise. Made him aware that while lifestyle change can be definitive for type 2 diabetes, right now people are encouraging him to take medications because this often takes time, and in the meantime he is likely creating microvascular ischemia, even as we speak. Leg fatigue with exertionhe has good palpable DP pulses as well as good cap refill, so while he might have some degree of claudication, I am more suspicious that his supposition of just muscle atrophy might be correct. Either way, he certainly does not have any clear need for intervention, and his physical exam is reassuringgraded exercise should help either/both problems Alcohol abusesupplement thiamine and folate. Fortunately his INR and bilirubin are very reassuring, as is his total protein level. Discussed long-term risks of alcohol abuse. He is interested in quitting. Set up with new PCP, sent message to help coordinate care in addition to discharge summary Resident Activity Tracking Resident Involvement: Resident Care Provided Care Provided: Adult Hospital Medicine
--- NOTE | 2022-10-04 19:59 | Billing Data ---
Date of Service October 04, 2022 Coding Level of Care Code D/C DAY MANAGEMENT <30 MINS
== END 2022-10-04 13:56 | disposition home or self-care (01) | DRG 918 ==
LOC: ED 17:27 → 4W 20:23 → SUATTDRO 20:23 → 4W 22:23

== ENCOUNTER 2023-03-19 20:54 | Inpatient (IN) ==
--- NOTE | 2023-03-19 21:25 | Emergency Department Note ---
Impression & Plan Acute CVA (cerebrovascular accident), Facial droop, Alcohol intoxication ED Provider Note NAME: AVE RUIZ AGE: 57 SEX: M : 1965 ARRIVES VIA: Walk-In INFORMANT: Patient ED PROVIDER(S): Migel Barbour DO CHIEF COMPLAINT: right facial droop HPI: Patient is a 57-year-old male who is a type II diabetic with past medical history of hypertension and alcohol abuse who presents to the ER for right facial droop at the angle of his mouth. He notes he has been drooling for the past 3 days. He denies any headache or change in vision. No chest pain or shortness of breath. He also admits to having trouble swallowing which has been going on for the past several months. No dysuria, urgency, or frequency. He did have a tick bite 2 weeks ago. No rashes or open other open wounds or sores. PAST MEDICAL HISTORY:See Below PAST SURGICAL HISTORY:See Below FAMILY HISTORY:See Below SOCIAL HISTORY:See Below HOME MEDICATIONS:See Below ALLERGIES:See Below VITALS:See Below PHYSICAL EXAMINATION: GENERAL: Sitting up in bed, alert, well appearing, well nourished, no distress, non-toxic EYE EXAM: normal conjunctiva. PERRL and EOM's grossly intact. OROPHARYNX: no exudate, no erythema, lips, buccal mucosa, and tongue normal and mucous membranes are moist NECK: supple, no nuchal rigidity, no adenopathy, non-tender LUNGS: Clear to auscultation. Normal chest wall mechanics HEART: no murmurs, S1 normal and S2 normal ABDOMEN: abdomen soft, non-tender, normo-active bowel sounds, no masses, no rebound or guarding. BACK: Back is symmetrical on inspection and there is no deformity, no midline tenderness, no CVA tenderness. SKIN: no rashes and no bruising UPPER EXTREMITIES: upper extremities are grossly normal. LOWER EXTREMITIES: No pitting edema. NEURO EXAM: Normal sensorium, cranial nerves II-XII with right facial droop at the angle of the mouth, normal speech, no weakness of arms, no weakness of legs. No drift. Finger to nose intact. Gross sensation intact. MEDICAL DECISION MAKING: Patient is a 57-year-old male who presents ER for right facial droop and drooling with drinking. He is a diabetic and does have a history of hypertension. He does drink alcohol daily. He notes this started around 3 days ago. He also has been having trouble swallowing for at least 2 weeks. External records reviewed. Labs show no significant leukocytosis or anemia. BMP with slightly elevated glucose at 223. T. bili at 2.6 which is fairly consistent just slightly above his baseline of about 2. Troponin negative. Lipase normal. Alcohol at 100. Lyme was negative. CT angios of the head and neck do show a stroke which was subacute. Patient was given rectal aspirin as he would fail the swallow study with a facial droop. Case was discussed with the [facility] hospitalist Dr. Mckeon for further evaluation management treatment. Not a TNK candidate due to symptoms being present for 3 days. Triage Nursing notes reviewed. Limited review of prior medical records performed Vital Signs: reviewed and remarkable for tachy and HTN Differential diagnosis: Differential Diagnosis includes but is not limited to ischemic Stroke, hemorrhagic stroke, bells palsy, mass, neoplasm, migraine headache, seizure, sub arachnoid hemorrhage, TIA, and transient global amnesia. ER treatment provided: See below Diagnostics interpreted by me include EKG and cardiac monitoring as listed below: -Cardiac Monitoring: An order was placed for continuous cardiac monitoring. The monitor shows a rate of 120 with sinus rhythm. -ECG: Sinus tachycardia rate of 104 Normal axis No PVCs QTc 465 -Laboratory studies:Interpreted by me as stated above in MDM and shown below. Imaging studies: Xrays: As interpreted by me:none CTs show: none Consultation(s): As described in MDM discussed with hospitalist for further evaluation management Procedures:none Critical Care: None Past Med/Surg History Medical History Abdominal pain Elevated lactic acid level Lab test negative for COVID-19 virus Metabolic acidosis Nephrolithiasis Overdose of salicylate Weakness Surgical History No history of previous surgery Family History Father Diabetes Heart disease Skin cancer Denies family history of Ovarian cancer Prostate cancer Myocardial infarction Breast cancer Colorectal cancer Social History Smoking Status: Never smoker Second Hand Exposure: No; Do You Dip or Chew Tobacco: No; Hx Alcohol Use: Yes Alcohol type: hard liquor Alcohol Intake Frequency: 4 or More x per/Week Alcohol Intake Frequency Comment: 2 drinks daily, "I probably drink too much." Hx Substance Use: No Preferred Language: Ghanaian Communication Ability: Effective Visual Impairment: No Limitations Hearing Ability: Normal Cable Tool 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 Required: No Beliefs That Will Affect Care: None marital status: Single Current Living Situation: Significant Other Current Living Situation Comment: on and off current occupational status: other 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 [employer] How many Children do You have: 0 Feels Safe at Home: Yes Childhood Exposure to Second-Hand Smoke: No Diet: low carbohydrate Dental Care, Regularly: Yes Physical Activity Frequency: 3-4 Times per Week Seatbelt Use: always Sunscreen Use: No Assistive Devices: None Allergies Allergies Allergy/AdvReac Type Severity Reaction Status Date / Time No Known Allergies Allergy Verified 03/09/23 09:58 Home Meds Previous Rx's Medication Instructions Recorded lisinopril 10 mg tablet 10 mg PO DAILY #30 tabs 02/09/23 semaglutide 0.25 mg or 0.5 mg (2 0.25 mg (0.4 mL) subcut .Weekly #3 02/10/23 mg/3 mL) subcutaneous pen injector mL (Ozempic) Results & Data (ED) Vital Signs Vital Signs - 24 hr 03/19/23 20:59 03/19/23 21:06 03/19/23 21:38 Temperature 36.5 C Temperature Source Temporal Artery Scan Pulse Rate 119 H 105 H Respiratory Rate 18 29 H Respiratory Effort / Characteristics Non-Labored Spontaneous Respiratory Depth Normal Respiratory Pattern Regular Blood Pressure 142/90 H Blood Pressure Mean 107 Blood Pressure Position Sitting Pulse Oximetry 97 97 96 Oxygen Delivery Method Room Air Room Air Room Air Sepsis Recent Fever Within 48 Hours No Sepsis New/Unexplained Change in Mental Status N/A Sepsis Action Taken by Nursing No Action Required 03/19/23 22:00 03/19/23 21:38 03/19/23 22:30 Temperature Temperature Source Pulse Rate 101 H 108 H 93 H Respiratory Rate 24 24 Respiratory Effort / Characteristics Respiratory Depth Respiratory Pattern Blood Pressure 143/82 H 147/91 H Blood Pressure Mean 102 109 Blood Pressure Position Pulse Oximetry 95 96 Oxygen Delivery Method Room Air Room Air Sepsis Recent Fever Within 48 Hours Sepsis New/Unexplained Change in Mental Status Sepsis Action Taken by Nursing 03/19/23 23:00 03/19/23 23:30 03/20/23 00:00 Temperature Temperature Source Pulse Rate 93 H 95 H 96 H Respiratory Rate 15 14 20 Respiratory Effort / Characteristics Respiratory Depth Respiratory Pattern Blood Pressure 140/97 169/114 H 180/124 H Blood Pressure Mean 111 132 142 Blood Pressure Position Pulse Oximetry 95 98 Oxygen Delivery Method Room Air Room Air Sepsis Recent Fever Within 48 Hours Sepsis New/Unexplained Change in Mental Status Sepsis Action Taken by Nursing 03/20/23 00:30 03/20/23 00:30 03/20/23 00:46 Temperature Temperature Source Pulse Rate 99 H 95 H Respiratory Rate 22 15 Respiratory Effort / Characteristics Respiratory Depth Respiratory Pattern Blood Pressure 171/127 H 177/103 H Blood Pressure Mean 141 127 Blood Pressure Position Pulse Oximetry 95 96 Oxygen Delivery Method Room Air Room Air Sepsis Recent Fever Within 48 Hours Sepsis New/Unexplained Change in Mental Status Sepsis Action Taken by Nursing Laboratory Data 03/19/23 21:27 03/19/23 21:27 Lab Results 03/19/23 03/19/23 03/19/23 Range/Units 21:27 21:27 21:27 WBC 6.12 (4.8-10.8) K/ul RBC 4.30 L (4.70-6.10) M/uL Hgb 15.5 (14.0-18.0) g/dl Hct 41.6 L (42.0-52.0) % MCV 96.7 (80.0-100.0) fL MCH 36.0 H (25.0-34.0) pg MCHC 37.3 H (32.0-36.0) g/dL RDW Std Deviation 41.8 (36.4-46.3) fL RDW Coeff of Nasmia 11.8 (11.5-14.5) % Plt Count 181 (130-400) K/uL MPV 10.3 (9.4-12.4) fL Immature Gran % (Auto) 0.2 % Neut % (Auto) 55.8 % Lymph % (Auto) 29.6 % [place] % (Auto) 11.6 % Eos % (Auto) 1.8 % Baso % (Auto) 1.0 % Neut # (Auto) 3.42 (1.40-6.50) K/uL Lymph # (Auto) 1.81 (1.2-3.4) K/uL [place] # (Auto) 0.71 H (0.11-0.59) K/uL Eos # (Auto) 0.11 (0-0.50) K/uL Baso # (Auto) 0.06 (0-0.2) K/uL Immature Gran # (Auto) 0.01 (0.01-0.20) K/uL Sodium 140 (136-145) mmol/L Potassium 3.7 (3.5-5.1) mmol/L Chloride 101 (98-107) mmol/L Carbon Dioxide 23 (21-32) mmol/L Anion Gap 16 H (3-11) BUN 20 (6-23) mg/dl Creatinine 0.97 (0.6-1.4) mg/dl Est Cr Clr Drug Dosing 96.5 ml/min Est GFR ( Amer) 99.3 ml/min Est GFR (Non-Af Amer) 85.7 ml/min BUN/Creatinine Ratio 20.6 H (10-20) Glucose 223 H (70-99(Fasting)) mg/dl Calcium 9.8 (8.6-10.3) mg/dl Total Bilirubin 2.6 H (0.2-1.0) mg/dl AST 45 H (13-39) U/L ALT 54 H (7-52) U/L Alkaline Phosphatase 42 (34-104) U/L Troponin I High Sens 7.8 (0-20) pg/ml Total Protein 7.2 (6.0-8.3) gm/dl Albumin 4.3 (3.4-5.0) gm/dl Globulin 2.9 (2.5-4.0) gm/dl Albumin/Globulin Ratio 1.5 (0.9-2) Lipase 48 (11-82) U/L Ethyl Alcohol mg/dL 104.1 H (<10.0) mg/dl Lyme Disease IgG Ab (Negative) Lyme Disease IgM Ab (Negative) 03/19/23 Range/Units 21:27 WBC (4.8-10.8) K/ul RBC (4.70-6.10) M/uL Hgb (14.0-18.0) g/dl Hct (42.0-52.0) % MCV (80.0-100.0) fL MCH (25.0-34.0) pg MCHC (32.0-36.0) g/dL RDW Std Deviation (36.4-46.3) fL RDW Coeff of Nasima (11.5-14.5) % Plt Count (130-400) K/uL MPV (9.4-12.4) fL Immature Gran % (Auto) % Neut % (Auto) % Lymph % (Auto) % [place] % (Auto) % Eos % (Auto) % Baso % (Auto) % Neut # (Auto) (1.40-6.50) K/uL Lymph # (Auto) (1.2-3.4) K/uL [place] # (Auto) (0.11-0.59) K/uL Eos # (Auto) (0-0.50) K/uL Baso # (Auto) (0-0.2) K/uL Immature Gran # (Auto) (0.01-0.20) K/uL Sodium (136-145) mmol/L Potassium (3.5-5.1) mmol/L Chloride (98-107) mmol/L Carbon Dioxide (21-32) mmol/L Anion Gap (3-11) BUN (6-23) mg/dl Creatinine (0.6-1.4) mg/dl Est Cr Clr Drug Dosing ml/min Est GFR ( Amer) ml/min Est GFR (Non-Af Amer) ml/min BUN/Creatinine Ratio (10-20) Glucose (70-99(Fasting)) mg/dl Calcium (8.6-10.3) mg/dl Total Bilirubin (0.2-1.0) mg/dl AST (13-39) U/L ALT (7-52) U/L Alkaline Phosphatase (34-104) U/L Troponin I High Sens (0-20) pg/ml Total Protein (6.0-8.3) gm/dl Albumin (3.4-5.0) gm/dl Globulin (2.5-4.0) gm/dl Albumin/Globulin Ratio (0.9-2) Lipase (11-82) U/L Ethyl Alcohol mg/dL (<10.0) mg/dl Lyme Disease IgG Ab Negative (Negative) Lyme Disease IgM Ab Negative (Negative) Administered Medications Discontinued Medications Ioversol (Optiray 320 500ml) 108 ml IV ONCE ONE Stop: 03/19/23 22:32 Last Admin: 03/19/23 22:31 Dose: 108 ml Documented By: CORA Imaging Data Radiologist's Impression: Head CTA 03/19/23 21:13 CR Exam(s): CTA HEAD W/WO Contrast IV Amt: 108ml OPTIRAY 320 EXAM: CT Angiography Head Without and With Intravenous Contrast CLINICAL HISTORY: Reason for exam: thompson. TECHNIQUE: Axial computed tomographic angiography images of the head without and with intravenous contrast. CTDI is 28.76 mGy and DLP is 512.02 mGy-cm. Automated exposure control was utilized for the study. A dose lowering technique was utilized adhering to the principles of ALARA. MIP reconstructed images were created and reviewed. CONTRAST: Patient received 108ml OPTIRAY 320 of IV contrast COMPARISON: No relevant prior studies available. FINDINGS: VASCULATURE: Right internal carotid artery: No acute findings. Intracranial segment is patent with no significant stenosis. No aneurysm. Right anterior cerebral artery: Unremarkable. No occlusion or significant stenosis. No aneurysm. Right middle cerebral artery: Unremarkable. No occlusion or significant stenosis. No aneurysm. Right posterior cerebral artery: Unremarkable. No occlusion or significant stenosis. No aneurysm. Right vertebral artery: Unremarkable as visualized. Left internal carotid artery: No acute findings. Intracranial segment is patent with no significant stenosis. No aneurysm. Left anterior cerebral artery: Unremarkable. No occlusion or significant stenosis. No aneurysm. Left middle cerebral artery: Unremarkable. No occlusion or significant stenosis. No aneurysm. Left posterior cerebral artery: Unremarkable. No occlusion or significant stenosis. No aneurysm. Left vertebral artery: Unremarkable as visualized. Basilar artery: Unremarkable. No occlusion or significant stenosis. No aneurysm. HEAD: Brain: Subacute appearing lacunar infarct within the left basal ganglia. No hemorrhage or mass-effect. Ventricles: Unremarkable. No ventriculomegaly. Bones/joints: No acute fracture. Soft tissues: Unremarkable. Sinuses: Unremarkable as visualized. No acute sinusitis. Mastoid air cells: Unremarkable as visualized. No mastoid effusion. IMPRESSION: 1. Subacute appearing lacunar infarct within the left basal ganglia. No hemorrhage or mass-effect. 2. No large vessel occlusion or flow limiting stenosis. Communications: Verify Receipt Electronically signed by: Nir Matute MD 03/19/23 23:33 PM Neck CTA 03/19/23 21:13 Exam(s): CTA NECK With Contrast IV Amt: 108ml OPTIRAY 320 EXAM: CT Angiography Neck With Intravenous Contrast CLINICAL HISTORY: Reason for exam: r facial droop and trouble swallowing. TECHNIQUE: Routine carotid CT angiography protocol was performed with intravenous contrast. NASCET criteria using the distal ICAs for comparison were used for evaluation of stenoses. CTDI is 19.98 mGy and DLP is 9.99 mGy-cm. Automated exposure control was utilized for the study. A dose lowering technique was utilized adhering to the principles of ALARA. MIP reconstructed images were created and reviewed. CONTRAST: Patient received 108ml OPTIRAY 320 of IV contrast COMPARISON: None. FINDINGS: VASCULATURE: Right common carotid artery: Unremarkable. No occlusion or significant stenosis. No dissection. Right internal carotid artery: Unremarkable. Extracranial segment is patent with no occlusion or significant stenosis. No dissection. Right external carotid artery: Unremarkable. No occlusion. Right vertebral artery: Unremarkable. No occlusion or significant stenosis. No dissection. Left common carotid artery: Unremarkable. No occlusion or significant stenosis. No dissection. Left internal carotid artery: Unremarkable. Extracranial segment is patent with no occlusion or significant stenosis. No dissection. Left external carotid artery: Unremarkable. No occlusion. Left vertebral artery: Unremarkable. No occlusion or significant stenosis. No dissection. NECK: Bones/joints: Unremarkable. Soft tissues: Unremarkable. Lung apices: Clear. CAROTID STENOSIS REFERENCE USING NASCET CRITERIA: % ICA stenosis = (1 - narrowest ICA diameter/diameter of distal cervical ICA) x 100. Mild - <50% stenosis. Moderate - 50-69% stenosis. Severe - 70-94% stenosis. Near occlusion - 95-99% stenosis. Occluded - 100% stenosis. IMPRESSION: Negative CTA neck. Electronically signed by: Nir Matute MD 03/19/23 23:35 PM Soft Tissue Neck CT 03/19/23 21:13 Exam(s): CT NECK With Contrast IV Amt: 108ml OPTIRAY 320 EXAM: CT Neck With Intravenous Contrast CLINICAL HISTORY: Reason for exam: trouble swallowing. TECHNIQUE: Axial computed tomography images of the neck with intravenous contrast. CTDI is 13.78 mGy and DLP is 600.07 mGy-cm. Automated exposure control was utilized for the study. A dose lowering technique was utilized adhering to the principles of ALARA. CONTRAST: Patient received 108ml OPTIRAY 320 of IV contrast COMPARISON: No relevant prior studies available. FINDINGS: Oropharynx: Unremarkable. No significant tonsillar enlargement. No peritonsillar abscess. Hypopharynx: Unremarkable. Larynx: Unremarkable. Normal epiglottis. Trachea: Unremarkable. Retropharyngeal space: Unremarkable. Submandibular/parotid glands: Unremarkable. Glands are normal in size. Thyroid: Unremarkable. No enlarged or calcified nodules. Bones/joints: No acute fracture. Soft tissues: Unremarkable. Vasculature: No acute findings. Lymph nodes: Unremarkable. No lymphadenopathy. Lung apices: Unremarkable as visualized. IMPRESSION: No acute findings identified within the neck. Electronically signed by: Nir Matute MD 03/19/23 23:38 PM Discharge Plan Visit Data Chief Complaint: Illness Stated Complaint: SOB ED Provider: Migel Barbour Discharge Problem: Acute CVA (cerebrovascular accident), Facial droop, Alcohol intoxication Forms Stand Alone Forms: [facility], [facility] Prescriptions Prescriptions: No Action Ozempic 0.25 mg or 0.5 mg (2 mg/3 mL) pen injector 0.25 mg subcut .Weekly Qty: 3 1RF lisinopril 10 mg tablet 10 mg PO DAILY Qty: 30 2RF Referrals Referrals: David Ureña DO [Primary Care Provider] -
[2023-03-19 21:41] LABS: Basophils # (auto) 0.06 K/uL (0-0.2); Eosinophils # (auto) 0.11 K/uL (0-0.50); Eosinophils % (auto) 1.8 %; Hematocrit (blood only) 41.6 % (42.0-52.0); Hemoglobin 15.5 g/dl (14.0-18.0); Immature Granulocytes # (auto) 0.01 K/uL (0.01-0.20); Immature Granulocytes % (auto) 0.2 %; Lymphocytes # (auto) 1.81 K/uL (1.2-3.4); Lymphocytes % (auto) 29.6 %; Mean Corpuscular Hgb Conc 37.3 g/dL (32.0-36.0); Mean Corpuscular Volume 96.7 fL (80.0-100.0); Mean Platelet Volume 10.3 fL (9.4-12.4); Monocytes # (auto) 0.71 K/uL (0.11-0.59); Monocytes % (auto) 11.6 %; Neutrophils # (auto) 3.42 K/uL (1.40-6.50); Neutrophils % (auto) 55.8 %; Platelet Count 181 K/uL (130-400); RDW Coefficient of Variation 11.8 % (11.5-14.5); RDW Standard Deviation 41.8 fL (36.4-46.3); White Blood Count 6.12 K/ul (4.8-10.8)
[2023-03-19 21:59] LABS: Albumin Globulin Ratio 1.5 (0.9-2); Albumin Level 4.3 gm/dl (3.4-5.0); BUN Creatinine Ratio 20.6 (10-20); Bilirubin,Total 2.6 mg/dl (0.2-1.0); Calcium 9.8 mg/dl (8.6-10.3); Creatinine Clr Calc Pharmacy 96.5 ml/min; Est GFR (African American) 99.3 ml/min; Est GFR (Non-African American) 85.7 ml/min; Globulin 2.9 gm/dl (2.5-4.0); Potassium 3.7 mmol/L (3.5-5.1); Total Protein 7.2 gm/dl (6.0-8.3)
[2023-03-19 22:05] LABS: Troponin I High Sensitivity 7.8 pg/ml (0-20)
[2023-03-19 22:18] LABS: Lyme Ab IgG w/WB Rflx Negative (Negative); Lyme Ab IgM w/WB Rflx Negative (Negative)
[2023-03-19] MEDS ORDERED: OPTIRAY 320 500ml IV ONE (22:31)
--- NOTE | 2023-03-19 23:35 | CT Scan Report ---
Exam(s): CTA HEAD W/WO Contrast IV Amt: 108ml OPTIRAY 320 EXAM: CT Angiography Head Without and With Intravenous Contrast CLINICAL HISTORY: Reason for exam: thompson. TECHNIQUE: Axial computed tomographic angiography images of the head without and with intravenous contrast. CTDI is 28.76 mGy and DLP is 512.02 mGy-cm. Automated exposure control was utilized for the study. A dose lowering technique was utilized adhering to the principles of ALARA. MIP reconstructed images were created and reviewed. CONTRAST: Patient received 108ml OPTIRAY 320 of IV contrast COMPARISON: No relevant prior studies available. FINDINGS: VASCULATURE: Right internal carotid artery: No acute findings. Intracranial segment is patent with no significant stenosis. No aneurysm. Right anterior cerebral artery: Unremarkable. No occlusion or significant stenosis. No aneurysm. Right middle cerebral artery: Unremarkable. No occlusion or significant stenosis. No aneurysm. Right posterior cerebral artery: Unremarkable. No occlusion or significant stenosis. No aneurysm. Right vertebral artery: Unremarkable as visualized. Left internal carotid artery: No acute findings. Intracranial segment is patent with no significant stenosis. No aneurysm. Left anterior cerebral artery: Unremarkable. No occlusion or significant stenosis. No aneurysm. Left middle cerebral artery: Unremarkable. No occlusion or significant stenosis. No aneurysm. Left posterior cerebral artery: Unremarkable. No occlusion or significant stenosis. No aneurysm. Left vertebral artery: Unremarkable as visualized. Basilar artery: Unremarkable. No occlusion or significant stenosis. No aneurysm. HEAD: Brain: Subacute appearing lacunar infarct within the left basal ganglia. No hemorrhage or mass-effect. Ventricles: Unremarkable. No ventriculomegaly. Bones/joints: No acute fracture. Soft tissues: Unremarkable. Sinuses: Unremarkable as visualized. No acute sinusitis. Mastoid air cells: Unremarkable as visualized. No mastoid effusion. IMPRESSION: 1. Subacute appearing lacunar infarct within the left basal ganglia. No hemorrhage or mass-effect. 2. No large vessel occlusion or flow limiting stenosis. Communications: Verify Receipt Electronically signed by: Nir Matute MD 03/19/23 23:33 PM
--- NOTE | 2023-03-19 23:37 | CT Scan Report ---
Exam(s): CTA NECK With Contrast IV Amt: 108ml OPTIRAY 320 EXAM: CT Angiography Neck With Intravenous Contrast CLINICAL HISTORY: Reason for exam: r facial droop and trouble swallowing. TECHNIQUE: Routine carotid CT angiography protocol was performed with intravenous contrast. NASCET criteria using the distal ICAs for comparison were used for evaluation of stenoses. CTDI is 19.98 mGy and DLP is 9.99 mGy-cm. Automated exposure control was utilized for the study. A dose lowering technique was utilized adhering to the principles of ALARA. MIP reconstructed images were created and reviewed. CONTRAST: Patient received 108ml OPTIRAY 320 of IV contrast COMPARISON: None. FINDINGS: VASCULATURE: Right common carotid artery: Unremarkable. No occlusion or significant stenosis. No dissection. Right internal carotid artery: Unremarkable. Extracranial segment is patent with no occlusion or significant stenosis. No dissection. Right external carotid artery: Unremarkable. No occlusion. Right vertebral artery: Unremarkable. No occlusion or significant stenosis. No dissection. Left common carotid artery: Unremarkable. No occlusion or significant stenosis. No dissection. Left internal carotid artery: Unremarkable. Extracranial segment is patent with no occlusion or significant stenosis. No dissection. Left external carotid artery: Unremarkable. No occlusion. Left vertebral artery: Unremarkable. No occlusion or significant stenosis. No dissection. NECK: Bones/joints: Unremarkable. Soft tissues: Unremarkable. Lung apices: Clear. CAROTID STENOSIS REFERENCE USING NASCET CRITERIA: % ICA stenosis = (1 - narrowest ICA diameter/diameter of distal cervical ICA) x 100. Mild - <50% stenosis. Moderate - 50-69% stenosis. Severe - 70-94% stenosis. Near occlusion - 95-99% stenosis. Occluded - 100% stenosis. IMPRESSION: Negative CTA neck. Electronically signed by: Nir Matute MD 03/19/23 23:35 PM
--- NOTE | 2023-03-19 23:40 | CT Scan Report ---
Exam(s): CT NECK With Contrast IV Amt: 108ml OPTIRAY 320 EXAM: CT Neck With Intravenous Contrast CLINICAL HISTORY: Reason for exam: trouble swallowing. TECHNIQUE: Axial computed tomography images of the neck with intravenous contrast. CTDI is 13.78 mGy and DLP is 600.07 mGy-cm. Automated exposure control was utilized for the study. A dose lowering technique was utilized adhering to the principles of ALARA. CONTRAST: Patient received 108ml OPTIRAY 320 of IV contrast COMPARISON: No relevant prior studies available. FINDINGS: Oropharynx: Unremarkable. No significant tonsillar enlargement. No peritonsillar abscess. Hypopharynx: Unremarkable. Larynx: Unremarkable. Normal epiglottis. Trachea: Unremarkable. Retropharyngeal space: Unremarkable. Submandibular/parotid glands: Unremarkable. Glands are normal in size. Thyroid: Unremarkable. No enlarged or calcified nodules. Bones/joints: No acute fracture. Soft tissues: Unremarkable. Vasculature: No acute findings. Lymph nodes: Unremarkable. No lymphadenopathy. Lung apices: Unremarkable as visualized. IMPRESSION: No acute findings identified within the neck. Electronically signed by: Nir Matute MD 03/19/23 23:38 PM
[2023-03-20] MEDS ORDERED: ASPIRIN 300 MG SUPP PR ONE (00:06)
--- NOTE | 2023-03-20 01:57 | History & Physical Report ---
Resident Physician Supervision Note: I discussed the case with the resident and agree with the findings and plan as documented in the note. Documented By: John Bowers MD Date of Service March 20, 2023 Assessment & Plan (1) Acute CVA (cerebrovascular accident): Plan: Patient is a 57-year-old male with past medical history of uncontrolled type 2 diabetes unmedicated, hypertension, and alcohol abuse who presented to the hosp ital for evaluation of right facial droop. Patient has had imaging suggestive of subacute CVA of left basal ganglia. Patient will be admitted for PT and OT evaluation, speech eval, and neurology recommendations. Patient is currently hemodynamically stable. -Admit to telemetry for indication of possible alcohol withdrawal -Patient does not meet criteria for clot busters given symptoms started 3 days ago -Consult neurology, appreciate recommendations -Consult PT, OT, and speech pathology, appreciate recommendations -N.p.o. until swallow evaluation, normal saline at 125 cc/h -Patient ideally should be started on dual antiplatelet therapy with Plavix and aspirin for secondary prevention, however, patient refusing per rectum aspirin and will likely refuse other medications as well. -Orders to start high intensity statin once n.p.o. status is gone -Aspiration precautions -Fall precautions -Patient is outside acute phase of ischemic stroke and should be on antihypertensive, however, patient refuses his home lisinopril -Keep head of bed elevated -A1c and lipid panel recently done in January of this year (2) Type 2 diabetes mellitus: Plan: - Uncontrolled and currently not on medication, last A1c -Should be on basal bolus insulin during hospitalization, however, patient refuses at this time -High intensity statin is also recommended as above -Refuses lisinopril -Ozempic noted in patient's chart, however, patient does not take this. (3) Hypertension: Plan: - Uncontrolled, refuses home lisinopril as above (4) Alcohol intoxication: Plan: -Typically 4-5 alcoholic beverages per night as mentioned -Placed on AWSS at risk protocol -Patient would benefit from naltrexone therapy for treatment of alcohol abuse (5) Elevated LFTs: Plan: -Likely secondary to alcohol abuse -Liver ultrasound ordered for AM -CMP in AM -PT/INR ordered at the time of writing this note (6) Elevated bilirubin: Plan: -Liver US as above -Morning Direct bilirubin, CMP -Suspect alcoholic liver disease Plan Diet: N.p.o. until speech eval, normal saline 125 cc/h DVT prophylaxis: Lovenox Disposition: Admit to telemetry due to concern for alcohol withdrawal CODE STATUS: Full code History of Present Illness Chief Complaint: Facial Droop Primary Care Provider: David Ureña DO Patient is a 57-year-old male with past medical history of uncontrolled type 2 diabetes unmedicated, hypertension, and alcohol abuse who presented to the hospital for evaluation of right facial droop. Patient reports that facial droop has been going for the past 3 days but it was subtle and only noticed by his recently so he was instructed to go to the ED for evaluation. He does report also trouble swallowing which seems to be a separate issue as it has been going on for the past several weeks to months. Denies any history of heart attack or stroke. Patient is a never smoker. Denies any deficits other than the facial droop. Denies any vision changes, upper extremity weakness, numbness, or tingling. No headache. Only a in terms of his alcohol use, patient seems to have 4-5 drinks which typically consist of liquor daily. He has done this for many years. Denies any history of withdrawal. Patient does not seem to have any interest in quitting at this time. Lastly, patient does not take any medications and has noted and previous doctors visits, patient tends to try and take a "natural" approach. Otherwise no complaints at this time. ED course: Patient presented to the ED with symptoms of facial droop for 3 days and was evaluated by ED physician. Labs were drawn which were significant for a glucose of 223, total bilirubin of 2.6, AST 45, ALT of 54, and an ethanol level of 104. CTA of the head and neck was completed which did show a subacute appearing lacunar infarct within the left basal ganglia otherwise no other clinical findings. CTA of the head and neck was completed a soft tissue neck CT was also ordered which showed no acute findings within the neck. Patient was ordered aspirin per rectum but the patient refused. The hospitalist service was then consulted for admission and evaluation. Allergies Allergy/AdvReac Type Severity Reaction Status Date / Time No Known Allergies Allergy Verified 03/09/23 09:58 Home Medications Medication Instructions Recorded Confirmed Type lisinopril 10 mg tablet 10 mg PO DAILY #30 tabs 02/09/23 03/19/23 Rx semaglutide 0.25 mg or 0.5 mg (2 0.25 mg (0.4 mL) subcut .Weekly #3 02/10/23 03/19/23 Rx mg/3 mL) subcutaneous pen injector mL (Ozempic) Past Med/Surg History Medical History Abdominal pain Elevated lactic acid level Lab test negative for COVID-19 virus Metabolic acidosis Nephrolithiasis Overdose of salicylate Weakness Surgical History No history of previous surgery Family History Father Diabetes Heart disease Skin cancer Denies family history of Ovarian cancer Prostate cancer Myocardial infarction Breast cancer Colorectal cancer Social History Smoking Status: Never smoker Second Hand Exposure: No; Do You Dip or Chew Tobacco: No; Hx Alcohol Use: Yes Alcohol type: hard liquor Alcohol Intake Frequency: 4 or More x per/Week Alcohol Intake Frequency Comment: 2 drinks daily, "I probably drink too much." Hx Substance Use: No Preferred Language: Turkish Communication Ability: Effective Visual Impairment: No Limitations Hearing Ability: Normal Black Ash Burner Operator Required: No Beliefs That Will Affect Care: None marital status: Single Current Living Situation: Significant Other Current Living Situation Comment: on and off current occupational status: other 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 How many Children do You have: 0 Feels Safe at Home: Yes Childhood Exposure to Second-Hand Smoke: No Diet: low carbohydrate Dental Care, Regularly: Yes Physical Activity Frequency: 3-4 Times per Week Seatbelt Use: always Sunscreen Use: No Assistive Devices: None Review of Systems Review of Systems: All systems reviewed & are unremarkable except as noted in HPI & below Physical Exam Constitutional: WD/WN, vitals as above Eyes: + anicteric sclerae ENMT: Nose: + face asymmetric Neck: normal visual inspection Respiratory: normal respiratory effort, lungs clear to auscultation Cardiovascular: RRR, no murmur, no edema Gastrointestinal (Abdomen): normal bowel sounds, soft, nontender, no hepatosplenomegaly Musculoskeletal: no cyanosis or clubbing, extremities motor strength 5/5 Skin: no rashes, warm and dry Neurologic: normal touch/pain/proprioception, CN's II-XI intact bilaterally, moves all extremities and awake Cranial Nerves: PERRL, normal accommodation, tongue midline, normal hearing and symmetric palate elevation Psychiatric: A+Ox3, euthymic affect Results & Data Results & Data Vital Signs (Past 12 Hours) Vital Signs Temp Pulse Resp BP Pulse Ox O2 Del Method 03/20/23 01:30 155/99 H 97 Room Air 03/20/23 01:00 97 H 21 175/113 H 95 Room Air 03/20/23 00:46 95 H 15 177/103 H 96 Room Air 03/20/23 00:30 99 H 22 95 Room Air 03/20/23 00:30 171/127 H 03/20/23 00:00 96 H 20 180/124 H 98 Room Air 03/19/23 23:30 95 H 14 169/114 H 95 Room Air 03/19/23 23:00 93 H 15 140/97 03/19/23 22:30 93 H 24 147/91 H 96 Room Air 03/19/23 21:38 108 H 03/19/23 22:00 101 H 24 143/82 H 95 Room Air 03/19/23 21:38 105 H 29 H 96 Room Air 03/19/23 21:06 97 Room Air 03/19/23 20:59 36.5 C 119 H 18 142/90 H 97 Room Air Code Status & VTE Plan VTE Prophylaxis Plan VTE Prophylaxis will be ordered: Yes
[2023-03-20] MEDS ORDERED: PHARMACIST DISCHARGE MED REC CONSULT PRN (03:15)
[2023-03-20] MEDS ORDERED: THIAMINE HCL 100 MG/ML 2 ML VIAL IM STA (03:15)
[2023-03-20] MEDS ORDERED: LORazepam 2 MG/1 ML VIAL IV PRN ×2 (03:15→22:36)
[2023-03-20] MEDS ORDERED: ONDANSETRON INJ 2 MG/ML 2 ML VIAL IV PRN (03:15)
[2023-03-20] MEDS: SODIUM CHLORIDE 0.9% 1000ML 1,000 ML IV SCH ×3 (03:49→20:04)
[2023-03-20 04:10] LABS: Prothrombin Time 10.8 Seconds (9.0-12.0)
[2023-03-20 05:56] LABS: Basophils # (auto) 0.06 K/uL (0-0.2); Basophils % (auto) 1.2 %; Eosinophils # (auto) 0.12 K/uL (0-0.50); Eosinophils % (auto) 2.4 %; Hematocrit (blood only) 39.8 % (42.0-52.0); Hemoglobin 14.8 g/dl (14.0-18.0); Immature Granulocytes # (auto) 0.01 K/uL (0.01-0.20); Immature Granulocytes % (auto) 0.2 %; Lymphocytes # (auto) 1.31 K/uL (1.2-3.4); Lymphocytes % (auto) 25.7 %; Mean Corpuscular Hemoglobin 35.7 pg (25.0-34.0); Mean Corpuscular Hgb Conc 37.2 g/dL (32.0-36.0); Mean Corpuscular Volume 95.9 fL (80.0-100.0); Mean Platelet Volume 10.7 fL (9.4-12.4); Monocytes # (auto) 0.74 K/uL (0.11-0.59); Monocytes % (auto) 14.5 %; Neutrophils # (auto) 2.85 K/uL (1.40-6.50); Platelet Count 177 K/uL (130-400); RDW Coefficient of Variation 11.6 % (11.5-14.5); RDW Standard Deviation 40.6 fL (36.4-46.3); Red Blood Count 4.15 M/uL (4.70-6.10); White Blood Count 5.09 K/ul (4.8-10.8)
[2023-03-20 06:07] LABS: Albumin Globulin Ratio 1.5 (0.9-2); Albumin Level 4.1 gm/dl (3.4-5.0); BUN Creatinine Ratio 22.2 (10-20); Bilirubin Direct 0.4 mg/dl (0-0.2); Bilirubin,Total 2.2 mg/dl (0.2-1.0); Calcium 9.3 mg/dl (8.6-10.3); Est GFR (African American) 108.7 ml/min; Est GFR (Non-African American) 93.8 ml/min; Globulin 2.8 gm/dl (2.5-4.0); Potassium 4.1 mmol/L (3.5-5.1); Total Protein 6.9 gm/dl (6.0-8.3)
--- NOTE | 2023-03-20 07:13 | XRay Report ---
XR chest 1V portable CLINICAL HISTORY: Chest pain, nonspecific TECHNIQUE: Single frontal radiograph of the chest was obtained. Comparison: Comparison is made to rib series 12/23/2022 FINDINGS: No lines and tubes are seen. The cardiomediastinal silhouette is normal. The lungs are clear. No evid ence of pleural effusion or pneumothorax. IMPRESSION: No acute chest disease. ACT 112: Negative or not required by law. Electronically signed by: Almas Cotto M.D. 03/20/2023 7:12 AM
--- NOTE | 2023-03-20 09:00 | Ultrasound Report ---
US abdomen limited CLINICAL HISTORY: Elevated LFTs, Hx of alcohol abuse. Liver US TECHNIQUE: Multiple real-time sonographic images of the right upper quadrant were obtained. Comparison: Comparison is made to CT abdomen pelvis 10/02/2022 FINDINGS: The liver is diffusely echogenic in appearance with poor ultrasound penetration, with normal contour, which is consistent with fatty infiltration. No focal mass lesions are seen. No intrahepatic duct al dilatation is seen. No gallstones or sludge are identified within the gallbladder. The gallbladde r wall is not thickened. There is no pericholecystic fluid present. A sonographic Huertas's sign was n ot elicited by the senior solutions engineer. The common duct measures 0.5 cm in diameter at the level of the hep atic artery. The visualized portions of the pancreas appear normal. The right kidney shows normal echogenicity, cortical thickness and renal contour. The right kidney sh ows no evidence of hydronephrosis or mass. No ascites or free fluid is seen in Watson's pouch. IMPRESSION: Hepatic steatosis. ACT 112: Negative or not required by law. Electronically signed by: Almas Cotto M.D. 03/20/2023 8:58 AM
--- NOTE | 2023-03-20 10:42 | Neurology Consultation ---
Date of Consultation March 20, 2023 Assessment & Plan (1) Acute CVA (cerebrovascular accident): (2) Facial droop: (3) Hypertension: (4) Alcohol intoxication: Plan this patient has a subacute left basal ganglia stroke of a medium-size resulting in some mild aphasia (detected by speech therapy and by exam) and right facial droop. Otherwise he does not have any other significant deficits. He has risk factors for stroke including hypertension and diabetes not adequately controlled. He is a former cigarette smoker ( remote past). Relatively recent lipid panel shows no dyslipidemia. Patient has excessive alcohol consumption which in and of itself may be a separate stroke risk factor ( as well as other central and peripheral nervous system risk). Recommendations: 1. Patient can remain on clopidogrel 75 milligram +81 milligram aspirin tablet daily, for 3 weeks then remain on 81 milligram aspirin. 2. MRI of the brain 3. Echocardiogram. 4. Continue with speech therapy. Increase activity as able. Overall, I spent a total of 60 minutes with this case including review of records, review of CT films, report generation, direct evaluation the patient at bedside, and discussions case with the patient and RN at bedside, and Dr. Levy including differential diagnosis and treatment options. History of Present Illness Reason for Consultation: patient is a 57-year-old, who I was asked to see at the request of Jaret Steen DO, for neurologic consultation regarding stroke Requesting Physician: Jaret Steen D.O. Attending Physician: Davion Levy History of Present Illness this patient has a history of type 2 diabetes, hypertension, and nephrolithiasis, on no medications. He tells me that his family doctor recommended medication but he was not interested in taking any. The patient drinks whiskey/bourbon on a daily basis typically 4-5 drinks per day. He has been doing this for years. About 3 days prior to admission, the patient had the onset of drooling and facial droop out of the right side of his mouth. He felt that his speech was off little bit to. He thought that it would "go away" but after several days it did not and he came to the emergency room March 19. When he arrived to the emergency room March 19 at 20:59, blood pressure was 142/90, pulse 119, temperature 36.5, respiratory rate 18, and O2 saturation 97 percent. His blood pressure has remained mildly elevated throughout this hospitalization so far. On exam he had right facial droop and some speech issues. CBC was unremarkable. Chem profile showed a glucose of 223 with elevated SGOT and SGPT with a normal lipase of 48. Total bili was mildly elevated as well. In late January triglycerides were 133 and total cholesterol 151. CT scan of the head showed a medium-size left basal ganglia subacute stroke. I reviewed these films. CT angiography of the head and neck was unremarkable with no significant vascular anomaly or stenosis. Currently patient has no complaint of pain or headache. There is no dizziness or vision problems. He does feel he has some problems finding words but otherwise comprehends and has no weakness or numbness in the arms or legs. Allergies Allergy/AdvReac Type Severity Reaction Status Date / Time No Known Allergies Allergy Verified 03/09/23 09:58 Home Medications Medication Instructions Recorded Confirmed Type lisinopril 10 mg tablet 10 mg PO DAILY #30 tabs 02/09/23 03/19/23 Rx semaglutide 0.25 mg or 0.5 mg (2 0.25 mg (0.4 mL) subcut .Weekly #3 02/10/23 03/19/23 Rx mg/3 mL) subcutaneous pen injector mL (Ozempic) Patient History Medical History Abdominal pain Elevated lactic acid level Lab test negative for COVID-19 virus Metabolic acidosis Nephrolithiasis Overdose of salicylate Weakness Surgical History No history of previous surgery Family History Father , age 81 of heart disease Diabetes Heart disease Skin cancer Mother , age 90 renal cancer Renal cancer Denies family history of Ovarian cancer Prostate cancer Myocardial infarction Breast cancer Colorectal cancer Social History Smoking Status: Former smoker Age Quit Using Tobacco: 29; Second Hand Exposure: No; Do You Dip or Chew Tobacco: No; Hx Alcohol Use: Yes Alcohol type: hard liquor Alcohol Intake Frequency: 4 or More x per/Week Alcohol Intake Frequency Comment: 4-5 whiskey/bourbon drinks per day, for years Hx Substance Use: No Preferred Language: Estonian Communication Ability: Effective Visual Impairment: No Limitations Hearing Ability: Normal Final Canoe Inspector Required: No Beliefs That Will Affect Care: None marital status: Single Current Living Situation: Alone and Significant Other current occupational status: other 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 How many Children do You have: 0 Feels Safe at Home: Yes Childhood Exposure to Second-Hand Smoke: No Diet: low carbohydrate Dental Care, Regularly: Yes Physical Activity Frequency: 3-4 Times per Week Seatbelt Use: always Sunscreen Use: No Assistive Devices: None Review of Systems Constitutional: no fever, no fatigue and no weakness Eyes: no diplopia, no eye pain and no worsening vision Ear, Nose, Mouth, Throat: no ear pain, no tinnitus, no hearing loss, no dizziness, no snoring, no hoarseness and no dysphagia Respiratory: no cough and no dyspnea Cardiovascular: no chest pain, no palpitations and no lightheadedness Gastrointestinal: no abdominal pain, no nausea and no vomiting Musculoskeletal: no back pain, no neck pain, no radicular pain, no joint pain and no myalgia Integumentary: no rash and no lesions Neurologic: + localized weakness and + abnormal speech; no gait abnormality, no generalized weakness, no tingling, no numbness, no tremor(s), no abnormal movements, no headache(s), no confusion and no memory loss Psychiatric: no depression, no irritability, no anxiety, no difficulty concen trating, no confusion and no hallucinations Endocrine: no fatigue and no flushing Hematologic / Lymphatic: no easy bleeding and no easy bruising Allergy / Immunological: no urticaria and no problem reported Exam (Neuro) Physical Exam: The patient is right-handed. The patient is awake, alert, and attentive. Speech is hesitant at times with some minor word-finding difficulties but no significant aphasic a that I could detect. The patient can name objects, repeat phrases, and has normal spontaneous speech. Mentation and thought processes are intact, with orientation to person, place and time, and normal fund of knowledge. Attention and concentration are normal. Mood and affect are normal and appropriate. General appearance and grooming are normal. Short and long-term memory are intact. Pupils are 4 mm bilaterally and reactive to light. Extraocular eye muscles are intact without nystagmus. Visual acuity and visual prasad seem normal grossly to confrontation. There are no deficits to sensation in the face in all 3 distributions of the fifth cranial nerve bilaterally. Corneal reflexes are positive bilaterally. There was a right facial droop at the corner of the mouth. Hearing seems normal bilaterally. Palate moves well without asymmetry. There is normal sternocleidomastoid and trapezius (shoulder shrug) strength bilaterally. Tongue is midline with good strength bilaterally. Neck has a full range of motion without discomfort. There are no cervical bruits bilaterally. There are no cranial or ocular bruits. Heart is without murmur. There is a regular rhythm and rate. Cervical, thoracic, and lumbar spine are nontender to palpation. Gait Was not tested but stands sitting up in bed is. With outstretched arms there is no drift. There are no resting, postural, or action tremors. There is no ataxia with finger to nose testing. There is good facility in the hands. No other abnormal involuntary movements are noted. Motor strength is 5/5 diffusely in the arms bilaterally including deltoids, biceps, triceps, brachioradialis, wrist flexors and extensors, speaking unit assembler, and intrinsic hand muscles. Motor strength is 5/5 diffusely in the legs bilaterally including hip flexors, quadriceps, hamstrings, gastrocnemius, tibialis anterior, tibialis posterior, and Peroneii muscles. Toe extensors are normal and there is good bulk in the extensor digitorum brevis muscles bilaterally. The limbs have good tone without rigidity or spasticity. There is no atrophy noted in the muscles. Muscle bulk is normal, there is no tenderness to palpation, no myotonia to percussion, and no fasciculations seen. Sensory examination is intact to touch and pin throughout all 4 limbs diffusely. Reflexes are 1/4 in the biceps, triceps, brachioradialis, quadriceps, and Achilles tendons bilaterally. There is no clonus bilaterally. Toes are downgoing with plantar stimulation bilaterally. Peripheral pulses are present and of normal quality distally in all 4 limbs. There is no peripheral edema noted in the limbs. Results & Data Vital Signs (Past 12 Hours) Vital Signs Temp Pulse Pulse Resp BP BP Pulse Ox 03/20/23 07:57 36.7 C 89 18 162/96 H 97 03/20/23 07:18 88 03/20/23 05:25 36.3 C L 90 18 157/93 H 95 03/20/23 03:19 03/20/23 03:15 37.3 C 96 H 18 146/94 H 96 03/20/23 03:15 03/20/23 02:33 134/111 H 96 03/20/23 02:03 97 03/20/23 01:30 155/99 H 97 03/20/23 01:00 97 H 21 175/113 H 95 03/20/23 00:46 95 H 15 177/103 H 96 03/20/23 00:30 99 H 22 95 03/20/23 00:30 171/127 H 03/20/23 00:00 96 H 20 180/124 H 98 03/19/23 23:30 95 H 14 169/114 H 95 03/19/23 23:00 93 H 15 140/97 Pulse Ox O2 Del Method O2 Del Method 03/20/23 07:57 Room Air 03/20/23 07:18 03/20/23 05:25 Room Air 03/20/23 03:19 Room Air 03/20/23 03:15 Room Air 03/20/23 03:15 96 Room Air 03/20/23 02:33 Room Air 03/20/23 02:03 Room Air 03/20/23 01:30 Room Air 03/20/23 01:00 Room Air 03/20/23 00:46 Room Air 03/20/23 00:30 Room Air 03/20/23 00:30 03/20/23 00:00 Room Air 03/19/23 23:30 Room Air 03/19/23 23:00 PG Care Time/CCT Total # of Minutes Spent Total Time Spent with Patient: Total time spent is greater than 50% in coordination of care (as documented) at patient's floor/unit and/or counseling patient: Coding Level of Care Code 40826 IN/OBS CONSULT LVL 4,60M Diagnoses Acute CVA (cerebrovascular accident) I63.9 Facial droop R29.810 Hypertension I10 Alcohol intoxication F10.929 Time Spent (min) 60
[2023-03-20] MEDS: CLOPIDOGREL BISULFATE 75 MG TAB PO SCH (10:52)
[2023-03-20] MEDS: ASPIRIN 325 MG ECTAB PO SCH (10:53)
[2023-03-20] MEDS: ATORVASTATIN 40 MG TAB PO SCH (10:53)
[2023-03-20] MEDS: ENOXAPARIN INJ 40 MG/0.4 ML SYR SQ SCH (10:54)
--- NOTE | 2023-03-20 16:23 | XCELERA ---
[id number]
[2023-03-20] MEDS ORDERED: chlordiazePOXIDE ALCOHOL WITHDRAWL 25MG PO STA (22:36)
[2023-03-20] MEDS: chlordiazePOXIDE HCl 25 MG CAP PO SCH (23:16)
[2023-03-21] MEDS: chlordiazePOXIDE HCl 25 MG CAP PO SCH ×3 (05:17→16:47)
--- NOTE | 2023-03-21 06:30 | Electrocardiogram Report ---
Test Reason : Blood Pressure : / mmHG Vent. Rate : 104 BPM Atrial Rate : 104 BPM P-R Int : 148 ms QRS Dur : 078 ms QT Int : 354 ms P-R-T Axes : 037 012 038 degrees QTc Int : 465 ms Sinus tachycardia Possible Left atrial enlargement Borderline ECG When compared with ECG of 02-OCT-2022 17:42, No significant change was found Confirmed by Zac Nathan ([id number]) on 03/21/2023 6:30:20 AM Referred By: REFERRED SELF Confirmed By:Zac Nathan
[2023-03-21 07:32] LABS: Basophils # (auto) 0.06 K/uL (0-0.2); Basophils % (auto) 1.1 %; Eosinophils # (auto) 0.18 K/uL (0-0.50); Eosinophils % (auto) 3.4 %; Hemoglobin 14.5 g/dl (14.0-18.0); Immature Granulocytes # (auto) 0.01 K/uL (0.01-0.20); Immature Granulocytes % (auto) 0.2 %; Lymphocytes # (auto) 1.15 K/uL (1.2-3.4); Lymphocytes % (auto) 21.5 %; Mean Corpuscular Hemoglobin 35.5 pg (25.0-34.0); Mean Corpuscular Hgb Conc 36.3 g/dL (32.0-36.0); Mean Platelet Volume 10.6 fL (9.4-12.4); Monocytes # (auto) 0.63 K/uL (0.11-0.59); Monocytes % (auto) 11.8 %; Neutrophils # (auto) 3.31 K/uL (1.40-6.50); Platelet Count 162 K/uL (130-400); RDW Coefficient of Variation 11.5 % (11.5-14.5); RDW Standard Deviation 41.6 fL (36.4-46.3); Red Blood Count 4.08 M/uL (4.70-6.10); White Blood Count 5.34 K/ul (4.8-10.8)
[2023-03-21 07:48] LABS: Albumin Globulin Ratio 1.6 (0.9-2); Albumin Level 3.8 gm/dl (3.4-5.0); BUN Creatinine Ratio 26.6 (10-20); Bilirubin,Total 3.3 mg/dl (0.2-1.0); Calcium 9.1 mg/dl (8.6-10.3); Creatinine Clr Calc Pharmacy 117.4 ml/min; Est GFR (African American) 114.7 ml/min; Globulin 2.4 gm/dl (2.5-4.0); Potassium 3.8 mmol/L (3.5-5.1); Total Protein 6.2 gm/dl (6.0-8.3)
[2023-03-21] MEDS: ASPIRIN 325 MG ECTAB PO SCH (08:56)
[2023-03-21] MEDS: ATORVASTATIN 40 MG TAB PO SCH (08:56)
[2023-03-21] MEDS: ENOXAPARIN INJ 40 MG/0.4 ML SYR SQ SCH ×2 (08:56→08:58)
[2023-03-21] MEDS: CLOPIDOGREL BISULFATE 75 MG TAB PO SCH (09:56)
--- NOTE | 2023-03-21 10:51 | Pharmacy Report ---
- Date of Service March 21, 2023 - Pharmacy CVA/TIA Medication Review Medications to Prevent Stroke handout has been added to the patients discharge packet. Antiplatelet(s) * Neurology recommends aspirin 81 mg daily + plavix 75 mg daily x 3 weeks, then aspirin alone Cholesterol * High intensity statin: atorvastatin 40 mg daily DVT Prophylaxis * Enoxaparin SQ Therapeutic Anticoagulation * No history of Afib/Aflutter noted Type 2 Diabetes * Patient has T2DM and is prescribed semaglutide prior to admission. PCP notes from 03/09/23, stated patient had not started semaglutide as trying to manage diabetes with diet control/natural approach. Discussed with provider and reasonable to continue semaglutide on discharge since medication also with proven CVD benefit. Would encourage compliance with medication and followup with PCP. Would discourage use of metformin as patient a heavy drinker. Concerns with this medication discussed with provider.
--- NOTE | 2023-03-21 22:25 | Hospitalist Progress Note ---
Date of Service March 21, 2023 Assessment & Plan (1) Acute CVA (cerebrovascular accident): Plan: Acute CVA (cerebrovascular accident): Plan: Patient is a 57-year-old male with past medical history of uncontrolled type 2 diabetes unmedicated, hypertension, and alcohol abuse who presented to the hospital for evaluation of right facial droop. Patient has had imaging suggestive of subacute CVA of left basal ganglia. Patient will be admitted for PT and OT evaluation, speech eval, and neurology recommendations. Patient is currently hemodynamically stable. -Admit to telemetry for indication of possible alcohol withdrawal -Patient does not meet criteria for clot busters given symptoms started 3 days ago -Consult neurology, appreciate recommendations -Consult PT, OT, and speech pathology, appreciate recommendations -N.p.o. until swallow evaluation, normal saline at 125 cc/h -Patient ideally should be started on dual antiplatelet therapy with Plavix and aspirin for secondary prevention, however, patient refusing per rectum aspirin and will likely refuse other medications as well. -Orders to start high intensity statin once n.p.o. status is gone -Aspiration precautions -Fall precautions -Patient is outside acute phase of ischemic stroke and should be on antihypertensive, however, patient refuses his home lisinopril -Keep head of bed elevated -A1c and lipid panel recently done in January of this year Patient can remain on clopidogrel 75 milligram +81 milligram aspirin tablet daily, for 3 weeks then remain on 81 milligram aspirin. Echocardiogram showed signs of LVH. Likely due to uncontrolled hypertension. SPeech eval completed, patient will need outpatient studies. Updated his at bedside, given that his last drink was night prior to admission, patient is in danger of withdrawal. If looking well in AM, we can discharge. (2) Hypertension: Plan: - Uncontrolled, refuses home lisinopril as above will discharge him on a low dose of lisinopril (3) Type 2 diabetes mellitus: Plan: - Uncontrolled and currently not on medication, last A1c -Should be on basal bolus insulin during hospitalization, however, patient refuses at this time -High intensity statin is also recommended as above -Ozempic noted in patient's chart, however, patient does not take this. Patient reports he is now agreeable to starting medication: will place on metformin, continue oxempic. Continue lisinopril. (4) Alcohol intoxication: Plan: -Typically 4-5 alcoholic beverages per night as mentioned -Placed on AWSS at risk protocol -doubt naltrexone would work as patient would need to take this medicine. And patient is very hesitant on starting new medication. Will focus on his DM2, and hypertension. Patient will be discharged (5) Elevated bilirubin: Plan: -Liver US as above -Morning Direct bilirubin, CMP -Suspect alcoholic liver disease Elevated LFTs: Plan: -Likely secondary to alcohol abuse -Liver ultrasound ordered for AM -CMP in AM -PT/INR ordered at the time of writing this note Admission and Anticipated Discharge Date Admission Date: March 20, 2023 Subjective 57 yo male reports feeling well. He reports no tremors or hallucinations Review of Systems Review of Systems: All systems reviewed & are unremarkable except as noted in HPI & below Physical Exam Physical Exam: Constitutional: WD/WN, vitals as above Eyes: + anicteric sclerae ENMT: Nose: + face asymmetric Neck: normal visual inspection Respiratory: normal respiratory effort, lungs clear to auscultation Cardiovascular: RRR, no murmur, no edema Gastrointestinal (Abdomen): normal bowel sounds, soft, nontender, no hepatosplenomegaly Musculoskeletal: no cyanosis or clubbing, extremities motor strength 5/5 Skin: no rashes, warm and dry Neurologic: normal touch/pain/proprioception, CN's II-XI intact bilaterally Psychiatric: A+Ox3, euthymic affect Results & Data Results & Data Vital Signs (Past 12 Hours) Vital Signs Temp Pulse Pulse Resp BP Pulse Ox O2 Del Method 03/21/23 19:48 36.6 C 83 20 157/93 H 95 Room Air 03/21/23 15:47 85 03/21/23 15:17 36.5 C 75 16 166/97 H 98 Room Air 03/21/23 11:17 36.5 C 74 17 155/92 H 98 Room Air PG Care Time/CCT Total # of Minutes Spent Total Time Spent with Patient: Total time spent is greater than 50% in coordination of care (as documented) at patient's floor/unit and/or counseling patient: Coding Level of Care Code 32445 SUB INP/OBS CARE 3/50MIN Diagnoses Acute CVA (cerebrovascular accident) I63.9 Hypertension I10 Type 2 diabetes mellitus E11.9 Alcohol intoxication F10.929 Elevated bilirubin R17 Time Spent (min) 50
[2023-03-22] MEDS: chlordiazePOXIDE HCl 25 MG CAP PO SCH ×2 (02:10→08:23)
[2023-03-22] MEDS: ASPIRIN 325 MG ECTAB PO SCH (08:21)
[2023-03-22] MEDS: CLOPIDOGREL BISULFATE 75 MG TAB PO SCH (08:21)
[2023-03-22] MEDS: ATORVASTATIN 40 MG TAB PO SCH (08:21)
[2023-03-22] MEDS: ENOXAPARIN INJ 40 MG/0.4 ML SYR SQ SCH (08:22)
[2023-03-22] MEDS ORDERED: PANTOprazole 40 MG TAB PO ONE (08:37)
[2023-03-22] MEDS ORDERED: STROKE PATIENT DISCHARGE STA (09:08)
--- NOTE | 2023-03-22 09:38 | Communication Note ---
Date of Service: March 22, [address] Lange, patient will be discharged on aspirin with no plavix as patient was having bleeding gums. Patient will need to focus on abstaining from alcohol.
--- NOTE | 2023-03-22 10:40 | Discharge Summary ---
Date of Service March 22, 2023 Admission HPI Per Admitting Provider Patient is a 57-year-old male with past medical history of uncontrolled type 2 diabetes unmedicated, hypertension, and alcohol abuse who presented to the hospital for evaluation of right facial droop. Patient reports that facial droop has been going for the past 3 days but it was subtle and only noticed by his recently so he was instructed to go to the ED for evaluation. He does report also trouble swallowing which seems to be a separate issue as it has been going on for the past several weeks to months. Denies any history of heart attack or stroke. Patient is a never smoker. Denies any deficits other than the facial droop. Denies any vision changes, upper extremity weakness, numbness, or tingling. No headache. Only a in terms of his alcohol use, patient seems to have 4-5 drinks which typically consist of liquor daily. He has done this for many years. Denies any history of withdrawal. Patient does not seem to have any interest in quitting at this time. Lastly, patient does not take any medications and has noted and previous doctors visits, patient tends to try and take a "natural" approach. Otherwise no complaints at this time. ED course: Patient presented to the ED with symptoms of facial droop for 3 days and was evaluated by ED physician. Labs were drawn which were significant for a glucose of 223, total bilirubin of 2.6, AST 45, ALT of 54, and an ethanol level of 104. CTA of the head and neck was completed which did show a subacute appearing lacunar infarct within the left basal ganglia otherwise no other clinical findings. CTA of the head and neck was completed a soft tissue neck CT was also ordered which showed no acute findings within the neck. Patient was ordered aspirin per rectum but the patient refused. The hospitalist service was then consulted for admission and evaluation. Discharge Exam Constitutional: WD/WN, vitals as above Eyes: + anicteric sclerae ENMT: Nose: + face asymmetric Neck: normal visual inspection Respiratory: normal respiratory effort, lungs clear to auscultation Cardiovascular: RRR, no murmur, no edema Gastrointestinal (Abdomen): normal bowel sounds, soft, nontender, no hepat osplenomegaly Musculoskeletal: no cyanosis or clubbing, extremities motor strength 5/5 Skin: no rashes, warm and dry Neurologic: normal touch/pain/proprioception, CN's II-XI intact bilaterally Psychiatric: A+Ox3, euthymic affect Discharge Data Allergies Allergy/AdvReac Type Severity Reaction Status Date / Time No Known Allergies Allergy Verified 03/09/23 09:58 Consultations 03/19/23 23:50 ED Decision to Admit Stat 03/20/23 01:58 Consult Neurology Routine Ordered Studies 03/19/23 21:13 CT angio head wo/w Stat CT angio neck with con Stat CT soft tissue neck w con Stat 03/20/23 03:15 US abdomen limited Routine Hospital Course (1) Acute CVA (cerebrovascular accident): Acute CVA (cerebrovascular accident): Plan: Patient is a 57-year-old male with past medical history of uncontrolled type 2 diabetes unmedicated, hypertension, and alcohol abuse who presented to the hospital for evaluation of right facial droop. Patient has had imaging suggestive of subacute CVA of left basal ganglia. Patient will be admitted for PT and OT evaluation, speech eval, and neurology recommendations. Patient is currently hemodynamically stable. -Admit to telemetry for indication of possible alcohol withdrawal -Patient does not meet criteria for clot busters given symptoms started 3 days ago -Consult neurology, appreciate recommendations -Consult PT, OT, and speech pathology, appreciate recommendations -N.p.o. until swallow evaluation, normal saline at 125 cc/h -Patient ideally should be started on dual antiplatelet therapy with Plavix and aspirin for secondary prevention, however, patient refusing per rectum aspirin and will likely refuse other medications as well. -Orders to start high intensity statin once n.p.o. status is gone -Aspiration precautions -Fall precautions -Patient is outside acute phase of ischemic stroke and should be on antihypertensive, however, patient refuses his home lisinopril -Keep head of bed elevated -A1c and lipid panel recently done in January of this year Patient can remain on clopidogrel 75 milligram +81 milligram aspirin tablet daily, for 3 weeks then remain on 81 milligram aspirin. Echocardiogram showed signs of LVH. Likely due to uncontrolled hypertension. SPeech eval completed, patient will need outpatient studies. Updated his at bedside, given that his last drink was night prior to admission, patient is in danger of withdrawal. If looking well in AM, we can discharge. (2) Hypertension: - Uncontrolled, refuses home lisinopril as above will discharge him on a low dose of lisinopril (3) Type 2 diabetes mellitus: - Uncontrolled and currently not on medication, last A1c -Should be on basal bolus insulin during hospitalization, however, patient refuses at this time -High intensity statin is also recommended as above -Ozempic noted in patient's chart, however, patient does not take this. Patient reports he is now agreeable to starting medication: will place on metformin, continue oxempic. Continue lisinopril. (4) Alcohol intoxication: -Typically 4-5 alcoholic beverages per night as mentioned -Placed on AWSS at risk protocol -doubt naltrexone would work as patient would need to take this medicine. And patient is very hesitant on starting new medication. Will focus on his DM2, and hypertension. Patient will be discharged (5) Elevated bilirubin: -Liver US as above -Morning Direct bilirubin, CMP -Suspect alcoholic liver disease Elevated LFTs: Plan: -Likely secondary to alcohol abuse -Liver ultrasound ordered for AM -CMP in AM -PT/INR ordered at the time of writing this note Discharge Plan Discharge Items Patient Disposition: Home - Self-Care Reason For Visit: STROKE SYMPTOMS Discharge Diagnosis: stroke Activity: Resume your previous activity Non-emergency contact: Primary Care Provider Call non-emergency contact if: you have any medication questions Follow-up/Referrals: David Ureña, [Primary Care Provider] - 03/29/23 9:20 am Diet: Carb Consistent or DM2 and Low Sodium (2gm) Addtl Attending Provider Instructions: Taking Blood Pressure Medicine: 1. Blood pressure medication helps control and manage high blood pressure, also known as hypertension. It is crucial to take it as prescribed by your healthcare provider. 2. High blood pressure can damage your blood vessels and lead to serious health issues, including heart disease, stroke, kidney disease, and vision problems. 3. Consistently taking your blood pressure medicine can help lower your blood pressure and reduce the risk of these complications. 4. Remember to take your medication at the same time every day to maintain a consistent level in your bloodstream. 5. If you experience side effects or have concerns about your medication, discuss them with your healthcare provider instead of stopping the medication on your own. Taking Diabetes Medications: 1. Diabetes medications are essential for managing blood sugar levels and pre venting complications related to diabetes. 2. Consistently taking your diabetes medications helps keep your blood sugar within a target range, reducing the risk of long-term complications. 3. Uncontrolled diabetes can lead to complications such as heart disease, stroke, kidney problems, nerve damage, eye conditions, and foot ulcers. 4. It's important to understand how your specific medication works, such as whether it increases insulin production or improves insulin sensitivity. 5. Follow your healthcare provider's instructions regarding when and how to take your diabetes medications, and ask about any potential side effects or interactions with other medications. Remember, taking blood pressure and diabetes medications alone may not be enough. A healthy lifestyle that includes regular exercise, a balanced diet, stress management, and regular check-ups with your healthcare provider are also crucial in managing these conditions and preventing complications. 2 gram low sodium Diet information: If you're following a 2 gram low sodium diet, here are some tips to help you along the way: 1. Read food labels: Pay close attention to the sodium content listed on packaged foods. Look for products labeled as "low sodium" or "no added salt." Try to choose items with the lowest sodium content per serving. 2. Choose fresh foods: Opt for fresh fruits, vegetables, and lean proteins as they are naturally low in sodium. These include items like fresh meats, poultry, fish, eggs, legumes, whole grains, and unsalted nuts and seeds. 3. Limit processed foods: Processed and pre-packaged foods often contain high amounts of sodium. Try to reduce your consumption of canned soups, frozen meals, deli meats, snacks, and condiments, as they tend to have added salt. 4. Cook at home: Preparing your meals at home allows you to control the sodium content. Choose low-sodium spices, herbs, and flavor enhancers like lemon juice, vinegar, garlic, and onion to add taste to your dishes. 5. Be mindful of condiments: Many condiments, such as soy sauce, ketchup, and salad dressings, can be high in sodium. Look for low-sodium alternatives or consider making your own dressings and sauces using low-sodium ingredients. 6. Rinse canned foods: If you use canned vegetables or beans, drain and rinse them thoroughly under water. This helps remove excess sodium from the suha liquid. 7. Limit salt substitutes: While there are salt substitutes available, such as potassium-based alternatives, it's important to consult with your healthcare provider before using them, as they may not be suitable for everyone. Remember, it's essential to work closely with a healthcare professional or registered dietitian to create a personalized low sodium plan that meets your specific dietary needs. You can discuss this with your PCP. Diabetic Diet: 1. Understand the importance of a diabetic diet: A diabetic diet plays a crucial role in managing blood sugar levels and overall health for individuals with type 2 diabetes. It focuses on balanced eating and portion control to help maintain stable blood sugar levels. 2. Choose nutrient-dense foods: Opt for foods that are rich in nutrients and low in added sugars, unhealthy fats, and refined carbohydrates. Include a variety of fruits, vegetables, whole grains, lean proteins, and healthy fats in your meals. 3. Carbohydrate counting: Learn about carbohydrates and how they affect blood sugar levels. Carbohydrates have the most significant impact on blood sugar levels, so it's important to monitor their intake. Work with a registered dietitian to learn carbohydrate counting techniques. 4. Portion control: Be mindful of portion sizes to avoid overeating. Use measuring cups, a food scale, or visual cues to help estimate appropriate portions. Eating smaller, frequent meals throughout the day can also help stabilize blood sugar levels. 5. Focus on fiber: Incorporate high-fiber foods like whole grains, legumes, fruits, and vegetables into your diet. Fiber aids in digestion, helps control blood sugar levels, and promotes a feeling of fullness. 6. Limit added sugars: Avoid or minimize foods and beverages with added sugars such as soda, sweets, desserts, and sugary snacks. Be cautious of hidden sugars in processed foods by reading labels and choosing products with no or low added sugars. 7. Healthy fats: Include healthy fats in moderation, such as avocados, nuts, seeds, and olive oil. These fats can help with satiety and promote heart health. 8. Regular mealtimes: Establish regular meal and snack times to maintain consistent blood sugar levels throughout the day. Avoid skipping meals, as it can lead to blood sugar imbalances. 9. Stay hydrated: Drink plenty of water throughout the day to stay hydrated and support overall health. Limit sugary beverages and opt for water, herbal tea, or unsweetened beverages instead. 10. Monitor blood sugar levels: Check your blood sugar levels regularly as directed by your healthcare provider. This will help you understand how different foods affect your levels and guide your dietary choices. The biggest thing though is for you to quit drinking. If you continue to drink, your stroke risk will not go down. Here is some information on quitting alcohol. If you're looking for advice on abstaining from alcohol, here are a few tips: 1. Set a clear goal: Determine why you want to abstain from alcohol and establish a specific timeframe or long-term commitment to guide your efforts. 2. Seek support: Reach out to friends, family, or support groups who can offer encouragement and understanding during your journey. Having a strong support system can be instrumental in staying motivated. 3. Avoid triggers: Identify situations or environments that typically lead to alcohol consumption and try to avoid them. This could mean staying away from bars or parties where alcohol is readily available. 4. Find alternative activities: Engage in hobbies, exercise, or other activities that can help occupy your time and provide a healthy distraction. It's important to fill the void left by alcohol with positive experiences. 5. Practice self-care: Focus on your physical and mental well-being. Get enough sleep, eat a balanced diet, and manage stress through relaxation techniques such as meditation or deep breathing exercises. 6. Celebrate small victories: Recognize and celebrate your progress along the way. Setting smaller milestones can help you stay motivated and reinforce the positive changes you're making. 7. Seek professional help if needed: If you find it challenging to abstain from alcohol or experience withdrawal symptoms, consider consulting a healthcare professional or emergency specialist for additional guidance and support. Remember, everyone's journey is unique, and it's essential to be patient and kind to yourself throughout the process. You will need a video swallow and a barium swallow evaluation. This can be done same day as an outpatient. Please Alternate Solid and Liquids. Addtl [employer] Provider Instructions: Risk Factors for Stroke: You can reduce your chances of stroke by working with your medical provider to adopt a healthy lifestyle. Some specific ways to lower your chance of stroke are: * If you are a smoker, now is the time to stop smoking cigarettes * If you are diabetic, improve the control of your blood sugars * Avoid excessive amounts of alcohol * Control high blood pressure * Lose weight if you are overweight * Be sure to lead an active lifestyle * Eat a healthy diet low in salt, cholesterol and fat You should know about other risk factors for stroke that you are unable to control. These include: * Age 55 years or older * Male gender * Certain racial groups: , or / * Family History of Stroke, Mini stroke or Heart Attack * Sickle Cell Disease Follow Up: It is important for you to keep your follow up appointments with your medical provider. Who to Call and When: Medical Emergencies: Call 911 immediately if you experience any of the following warning signs and symptoms of Stroke: * Sudden numbness or weakness of the face, arm or leg, especially on one side of the body * Sudden confusion, trouble speaking or understanding * Sudden trouble seeing in one or both eyes * Sudden trouble walking, dizziness, loss of balance or coordination * Sudden severe headache with no cause Do not delay calling 911 if you experience any warning signs or symptoms of a stroke. Delay in seeking medical attention may affect what treatments can be given to you. Pending Studies at Discharge: No Stand-Alone Forms: My [facility] PROSimity, Smoking Cessation, Medications to Prevent Stroke Medications and DC Order Prescriptions: New lisinopril 5 mg tablet 5 mg PO DAILY Qty: 30 0RF atorvastatin 40 mg tablet 40 mg PO HS Qty: 30 0RF metformin 500 mg tablet extended release 24 hr 500 mg PO DAILY Qty: 30 0RF Rx Instructions: Take on a full stomach aspirin 81 mg tablet,delayed release (DR/EC) 81 mg PO DAILY Qty: 30 0RF chlordiazepoxide HCl 25 mg capsule 25 mg PO TID Qty: 2 0RF Rx Instructions: noon and dinner chlordiazepoxide HCl 10 mg capsule 10 mg PO TID Qty: 3 0RF Rx Instructions: Take monring lunch dinner on 03/23 chlordiazepoxide HCl 5 mg capsule 5 mg PO BID Qty: 2 0RF Rx Instructions: morning and dinner for 03/24/23 Ozempic 0.25 mg or 0.5 mg (2 mg/3 mL) pen injector 0.25 mg subcut .weekly Qty: 3 0RF Discontinued Ozempic 0.25 mg or 0.5 mg (2 mg/3 mL) pen injector 0.25 mg subcut .Weekly Qty: 3 1RF lisinopril 10 mg tablet 10 mg PO DAILY Qty: 30 2RF Discharge Orders: Discharge Order (Routine); Ordered 03/22/23 Ordered By: Davion Levy Admission Data Admit Date/Time: 03/20/23 01:27 Attending Provider: Davion Lvey Admit Provider: Jaret Steen Primary Care Provider: David Ureña Other Providers: John Bowers ; Jabier Lange Other Interventions: Discharge Summary Assessment (RN) Last Done: 03/22/23 09:31 Coding Diagnoses Acute CVA (cerebrovascular accident) I63.9 Hypertension I10 Type 2 diabetes mellitus E11.9 Alcohol intoxication F10.929 Elevated bilirubin R17
[2023-03-24] MEDS ORDERED: chlordiazePOXIDE HCl 5 MG CAP PO SCH (06:00)
== END 2023-03-22 10:09 | disposition home or self-care (01) | DRG 65 ==
LOC: ED 20:54 → 2N 03-20 01:17 → SUATTDRO 03-20 01:17 → 2N 03-20 02:40